=== PATIENT | female | born 1970 | race Caucasian/White ===

== ENCOUNTER → 2018-10-12 13:23 | Outpatient (CLI) | payer OTHER, SELFPAY ==
[2018-10-12 16:18] LABS: T4 Free Direct 1.18 ng/dL (0.76-1.46)
== END ==
PROVIDERS: Family Provider Family Medicine; PCP Family Medicine; Visit Provider Family Medicine
DX: E03.9 Hypothyroidism, unspecified (principal)
CPT/HCPCS: 36415; 84439; 84443

== ENCOUNTER → 2019-08-12 09:21 | Outpatient (CLI) | payer OTHER, SELFPAY ==
--- NOTE | 2019-08-12 09:25 | RAD_ITS ---
STUDY: X-RAY - RIGHT FOOT CLINICAL: Female, [address] Skinner on foot bruising the dorsum of the foot particularly the third and fourth digits. TECHNIQUE: 3 view(s) of the foot. COMPARISON: None. FINDINGS: Normal talus, calcaneus, and tarsal bones. Normal visualized subtalar, talonavicular, calcaneocuboid, tarsal and tarsometatarsal articulations. Normal metatarsi. 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 Normal tibial and fibular sesamoid bones. Normal interphalangeal joint of the great toe. Normal phalanges of the great toe. Normal second through fifth metatarsophalangeal joints. There is Claw toe deformity of the second through fifth toes. There is no fracture or dislocation. The soft tissue structures are unremarkable. RAD/Foot min 3 Views IMPRESSION: No acute fracture or dislocation. Electronically Signed: Basim Vazquez DO at 16:49 EST Tel [phone], Service support ,
== END ==
PROVIDERS: Family Provider Family Medicine; PCP Family Medicine; Referring Provider Family Medicine; Visit Provider Family Medicine
DX: M79.671 Pain in right foot (principal)
CPT/HCPCS: 73630

== ENCOUNTER → 2019-10-01 | Outpatient (CLI) | payer OTHER, SELFPAY | END | disposition home or self-care (01) | LOC: BFHLAB 11:07 | PROVIDERS: PCP Family Medicine; Visit Provider Family Medicine | DX: N39.0 Urinary tract infection, site not specified (principal) | CPT/HCPCS: 87086; 87088; 87186 ==

== ENCOUNTER → 2020-11-03 09:33 | Outpatient (CLI) | payer OTHER, SELFPAY ==
[2020-11-03 12:14] LABS: Absolute Lymphocyte Count 1.19 X10^3/uL (0.83-4.51); Absolute Neutrophil Count 2.6 X10^3/uL (2.0-7.7); Basophil# 0.05 X10^3/uL; Basophil% 1.1 % (0-1); Eosinophil# 0.14 X10^3/uL; Eosinophils% 3.2 % (0-5); Hematocrit 42.5 % (37-47); Hemoglobin 13.4 g/dL (12.0-15.0); Lymphocyte # 1.19 X10^3/ul (4.0); Lymphocyte % 26.8 % (19-41); Mean Corp Hgb Conc 31.5 g/dL (32-36); Mean Corpuscular Hgb 28.4 pg (27.0-32.0); Mean Platelet Vol. 10.8 fl (6.2-12.0); Monocyte# 0.44 X10^3/uL; Monocyte% 9.9 % (0-10); NRBC Flagged by Analyzer 0 % (0-5); Neutrophil # 2.61 X10^3/uL (2.7-7.7); Neutrophil % 58.8 % (47-70); Platelet Count 243 K/mm3 (150-450); RBC Distribution Width CV 12.6 % (11.6-14.6); RBC Distribution Width SD 41.2 fl (35.1-43.9); Red Blood Count 4.72 M/mm3 (4.2-5.4); White Blood Count 4.4 K/mm3 (4.4-11.0)
[2020-11-03 12:45] LABS: ALB/GLOB Ratio 1.1 RATIO (0.9-2.4); AST(SGOT) 14 U/L (15-37); Alanine Aminotransfer ALT/SGPT 20 U/L (13-56); Albumin, Serum 3.9 g/dL (3.2-5.0); Alkaline Phosphatase 80 U/L (45-117); Anion Gap 6 (5-15); BUN 16 mg/dL (7-18); BUN/Creat Ratio 20.8 RATIO (10-20); Calcium,Total 8.9 mg/dL (8.5-10.1); Chloride 107 mmol/L (98-107); Cholesterol 161 mg/dL (200); Creatinine, Serum 0.77 mg/dL (0.55-1.02); EST Glomerular Filtration Rate 84 mL/min (>60); Est Glom Filt Rate - Afr Amer 102 mL/min (>60); Globulin 3.7 g/dL (2.2-4.2); Glucose 87 mg/dL (74-106); High Density Lipoprotein 79 mg/dL; Potassium 4.2 mmol/L (3.5-5.1); Protein, Total 7.6 g/dL (6.4-8.2); Sodium Level 140 mmol/L (136-145); T4 Free Direct 1.38 ng/dL (0.76-1.46); Thyroid Stim Hormone (TSH) 0.92 uIU/mL (0.358-3.74); Triglycerides 60 mg/dL; Very Low Density Lipoprotein 12 mg/dL (5-40)
== END ==
PROVIDERS: PCP Family Medicine; Visit Provider Family Medicine
DX: Z00.00 Encounter for general adult medical examination without abnormal findings (principal); E03.9 Hypothyroidism, unspecified
CPT/HCPCS: 36415; 80053; 80061; 84439; 84443; 85025

== ENCOUNTER → 2020-11-16 12:37 | Outpatient (CLI) | payer OTHER, SELFPAY ==
--- NOTE | 2020-11-16 12:39 | BI_ITS ---
MAMMOGRAPHY - BILATERAL SCREENING REASON FOR EXAM: Female, 50 years old. Routine annual screening examination. PERTINENT HISTORY: Non-contributory. TECHNIQUE: Digital bilateral breast haven (3D mammographic acquisition) in the CC and MLO projections. 2-D mediolateral oblique (MLO) and craniocaudad (CC) views of both breasts were obtained. CAD: Full Field Digital Mammography with Computer Added Detection was performed. COMPARISON: None. Baseline examination. FINDINGS: Breast Composition: There are scattered areas of fibroglandular density. There are no dominant masses or suspicious calcifications. No other significant abnormalities are identified. BI/SCRN MAMM (CAD)W/HAVEN BILAT IMPRESSION: Negative screening mammogram. Yearly followup mammogram recommended. (A) ASSESSMENT CATEGORY: BIRADS Category 1: Negative. A letter regarding these results will be sent to the patient by the facility within 30 days. Approximately 10% of breast cancers are not detected by mammography. A normal mammogram should not delay biopsy of a clinically suspicious abnormality. [id number] Electronically Signed: Rio Arenas MD at 14:49 EDT , Service support ,
== END ==
PROVIDERS: PCP Family Medicine; Referring Provider Family Medicine; Visit Provider Family Medicine
DX: Z12.31 Encounter for screening mammogram for malignant neoplasm of breast (principal)
CPT/HCPCS: 77063; 77067

== ENCOUNTER 2021-12-15 11:50 | Outpatient (CLI) | payer OTHER, SELFPAY ==
--- NOTE | 2021-12-15 11:55 | BI_ITS ---
MAMMOGRAPHY - BILATERAL SCREENING REASON FOR EXAM: Female, 51 years old. Routine annual screening examination. PERTINENT HISTORY: Non-contributory. TECHNIQUE: Digital bilateral breast haven (3D mammographic acquisition) in the CC and MLO projections. 2-D mediolateral oblique (MLO) and craniocaudad (CC) views of both breasts were obtained. CAD: Full Field Digital Mammography with Computer Added Detection was performed. COMPARISON: Comparison is made with prior study dated 11/16/2020. FINDINGS: Breast Composition: There are scattered areas of fibroglandular density. There are no dominant masses or suspicious calcifications. No other significant abnormalities are identified. There has been no significant change since the prior study. BI/SCRN MAMM (CAD)W/HAVEN BILAT IMPRESSION: Stable bilateral screening mammogram. Yearly follow-up mammogram recommended. (A) ASSESSMENT CATEGORY: BIRADS Category 1: Negative. A letter regarding these results will be sent to the patient by the facility within 30 days. Approximately 10% of breast cancers are not detected by mammography. A normal mammogram should not delay biopsy of a clinically suspicious abnormality. [id number] Electronically Signed: Rio Arenas MD at 12:46 EDT ,
== END 2021-12-15 23:59 | disposition home or self-care (01) ==
PROVIDERS: PCP Family Medicine; Visit Provider Family Medicine
DX: Z12.31 Encounter for screening mammogram for malignant neoplasm of breast (principal)
CPT/HCPCS: 77063; 77067

== ENCOUNTER → 2022-04-25 | Outpatient (CLI) | payer OTHER, SELFPAY | END | disposition home or self-care (01) | PROVIDERS: PCP Family Medicine; Visit Provider Family Medicine | DX: S81.801A Unspecified open wound, right lower leg, initial encounter (principal) | CPT/HCPCS: 87070; 87077; 87186; 87205 ==

== ENCOUNTER 2022-04-29 07:45 | Outpatient (RCR) | payer OTHER, SELFPAY ==
[2022-04-29 08:02] VITALS: BP 123/81; PULSE 69; TEMP 36.4
--- NOTE | 2022-04-29 12:30 | HP.PCM_ITS ---
History of Present Illness Date of Service: 04/29/22 Chief Complaint: ulcer right montoya History of Wound: Marietta is a pleasant 51 yo woman who presents to the wound healing center today for evaluation and treatment of an ulcer of her right montoya that has been present since January 2022. She initially injured her montoya by striking it against an extension ladder and developed a large hematoma. An X-ray was done to rule out fracture of bone at that time and this was negative for fracture. The hematoma has decreased in size over time and the wound to her montoya has started to heal at times but never fully healed since the initial injury. In the last week it has gotten larger and become painful and she went to urgent care and was prescribed doxycycline for antibiotics and saw her PCP on Monday who performed a wound culture and referred her here for evaluation and treatment. She has applied bacitracin and triple antibiotic ointment intermittently over the presence of the ulcer. On Monday04/25/2022, she was instructed to start using calcium alginate and kerlix to the ulcer and this has improved the amount of slough to the ulcer. She has moderate drainage. She is tolerating doxycycline treatment and denies any fever, chills, increased erythema or increase in drainage or pain. Wound culture performed by PCP showed Enterobacter, not sensitive to doxycycline. [facility] Medical History Cellulitis of right lower leg Home Medications ciprofloxacin HCl 500 mg tablet 500 mg PO BID #20 tabs 04/29/22 [Rx Last Taken Unknown] Allergy/AdvReac Type Severity Reaction Status Date / Time Penicillins Allergy Intermediate . Verified 02/07/22 10:13 Social History Smoking Status: Never smoker ROS Constitutional Constitutional: Denies chills, fatigue or fever(s) Eyes Eyes: Denies blurry vision, change in vision or loss of vision ENT HEENT: Denies dysphagia, hearing loss or sore throat Cardiovascular Cardiovascular: Denies chest pain, edema or palpitations Respiratory/Chest Respiratory/Chest: Denies dry cough, dyspnea, dyspnea on exertion, productive cough or wheezing Gastrointestinal Gastrointestinal: Denies diarrhea, nausea or vomiting Genitourinary Genitourinary: Denies dysuria or polyuria Musculoskeletal Musculoskeletal: Denies arthralgias, joint stiffness or muscle weakness Integumentary Integumentary: Reports erythema and wounds Neurologic Neurologic: Denies dizziness, memory loss or weakness Psychiatric Psychiatric: Denies homicidal ideation or suicidal ideation Endocrine Endocrinology: Denies polydipsia, polyphagia or polyuria Hematologic/Lymphatic Hematologic/Lymphatic: Denies easy bleeding or easy bruising Allergic/Immunologic Allergic/Immunologic: Denies throat swelling, tongue swelling or urticaria Vital Signs Vital Signs Vital Signs: 04/29/22 08:02 Temperature 97.5 F L Temperature Source Temporal Pulse Rate 69 Blood Pressure 123/81 H Blood Pressure Mean 95 Blood Pressure Source Monitor Blood Pressure Position Sitting Blood Pressure Location Right Arm Physical Exam Const alert, oriented x3 and no apparent distress General Appearance: cooperative and comfortable HEENT normocephalic and head/scalp atraumatic Resp normal respiratory effort Effort and Inspection: able to speak in complete sentences Cardio regular rate and regular rhythm Skin Wounds: wounds noted Wound Narrative: as in clinical panel Psych mental status grossly normal, thought process normal, cooperative and affect normal Debridement Note Debridement Note Wound debrided: right montoya Laterality: Right Type of Debridement: Excisional debridement Anesthesia Used: 4% Lidocaine Solution, 5% Lidocaine Gel and Cetacaine Depth: Down to and including healthy tissue and in the subcutaneous layer Percentage of wound debrided: 100 Instrument Used: 5mm curette, #15 blade and Forceps Tissue Removed: Yellow slough, devitalized tissue Severity: Fat Layer Exposed Amount of bleeding with debridement: Mild Bleeding Controlled with: Compression and gauze Patient tolerated procedure: Patient tolerated procedure well Post-Debridement Measurements and Additional Note: Post-Debridement Measurements/Treatment - Nurse 1 - General Ulcer Assessment Start: 04/29/22 08:01 Freq: Status: Active Protocol: HARINDER Activity Type Activity Date Activity User E-sign Co-sign Detail Recorded Client Recorded Date Recorded By Document 04/29/22 08:02 [id number] 04/29/22 08:10 PAMELA 04/29/22 08:02 - Today's Visit Information Type of service Initial Visit Arrival Mode Ambulatory Patient Identification Verified (Name & Yes ) Vital Signs Temperature (97.8 F-99.1 F) 97.5 F L Temperature Source Temporal Pulse Rate (60-100) 69 Pulse Location Monitor Blood Pressure (90/60-120/80) 123/81 H Blood Pressure Mean 95 Source Monitor Position Sitting Blood Pressure Location Right Arm History Since Last Visit- (Skip if this is Patient's initial visit) Have you changed medications since your No last visit? Any new allergies or adverse reactions No Had a fall/change in ADL's that may No increase risk of falls Signs or symptoms of abuse and/or No neglect since last visit Have you been in the hospital since your No last visit? Has dressing in place as prescribed No Has compression in place as prescribed N/A Has offloadiing in place as prescribed N/A Experienced any changes in pain level or No management Left Footwear Regular Shoe Right Footwear Regular Shoe Pain Scale: 0-10 Numeric Is Patient Pain Free? Yes WC - Nurse 1 - General Ulcer Measurement Start: 04/29/22 08:01 Freq: Status: Active Protocol: Activity Type Activity Date Activity User E-sign Co-sign Detail Recorded Client Recorded Date Recorded By Document 04/29/22 08:02 [id number] 04/29/22 08:10 KR 04/29/22 08:02 Wound Center Nurse 1 #1 Right Montoya -Current Size (cm) - Length 2 -Current Size (cm) - Width 3.3 -Current Size (cm) - Depth 0.2 -Total Square Cm 6.6 -Exudate Amt Small -Exudate Type Serosanguineous -Wound Margin Distinct, Outline Attached -Granulation Amt Medium (34-66%) -Granulation Quality Red -Necrosis Amt Medium (34-66%) -Necrotic Tissue Type Adherent Slough -Texture (Sania-wound Skin Appearance) Assessed, Scarring -Moisture (Sania-wound Skin Appearance) No Abnormality, Assessed -Color (Sania-wound Skin Appearance) No Abnormality, Assessed -Temperature (Sania-wound Skin No Abnormality Appearance) (Pt Warm) -Tenderness on Palpation (Sania-wound No Skin Appearance) -Ulcer Cleansing Rinsed/ Irrigated with Saline -Foul Odor after Cleansing No -Anesthetic Used 5% Lidocaine Gel Right Calf (cm) 40.3 Right Ankle (cm) 30.5 WC - Nurse 2 - General Ulcer CM Notes Start: 04/29/22 08:01 Freq: Status: Active Protocol: Activity Type Activity Date Activity User E-sign Co-sign Detail Recorded Client Recorded Date Recorded By Document 04/29/22 08:27 [id number] 04/29/22 09:02 MW 04/29/22 08:27 Wound Center Nurse 2 #1 Right Montoya -Time 08:29 -Correct Patient Yes -Correct Side, Site, Position Yes -Correct Procedure Yes -Procedure Performed Yes -Type of Procedure Debridement -Clinical Debridement Subcutaneous -Tissue Removed Subcutaneous -Post Debridement (cm) - Length 2.0 -Post Debridement (cm) - Width 3.0 -Post Debridement (cm) - Depth 1.3 -Total Square (Post) (cm) 6.00 -Area of Debridement (cm) - Length 2.0 -Area of Debridement (cm) - Width 3.0 -Total Square (Area) (cm) 6.00 -Tunneling No -Undermining/Tunneling Yes -Undermining/Tunneling Starts (O'clock 4 ) -Undermining/Tunneling Ends (O'clock) 10 -Maximum Distance (cm) 2.8 -Circular Undermining No -Wound/Ulcer Outcome Not Healed -Ulcer Cleansing Rinsed/ Irrigated with Saline -Foul Odor after Cleansing No -Bioengineered Tissue No -Bleeding Controlled with Pressure -Treatment Response Procedure Tolerated Well -Offloading No -Debridement - Subq, 1st 20sq cm Yes Pain Scale: 0-10 Numeric Is Patient Pain Free? Yes WC - Nurse 3 - General Ulcer D/C NN Start: 04/29/22 08:01 Freq: Status: Active Protocol: Activity Type Activity Date Activity User E-sign Co-sign Detail Recorded Client Recorded Date Recorded By Document 04/29/22 09:20 LEROY [id number] 04/29/22 09:24 AK 04/29/22 09:20 Wound Care Nurse 3 #1 Right Montoya -Ulcer Cleansing Rinsed/ Irrigated with Saline -Foul Odor after Cleansing No -Negative Pressure Wound Therapy N/A -Primary Dressing Applied Aquacel AG 4x4, Aquacel Rope, Mepilex Border -Aquacel AG 4x4 2 -Aquacel Rope 2 -Mepilex Border 2 Pain Scale: 0-10 Numeric Is Patient Pain Free? Yes WC - Visit Discharge Discharge Condition Stable Ambulatory Status Ambulatory Transportation Private Auto Medication Reconcilliation completed & Yes provided to patient/care provider Clinical Summary of Care Provided Yes Lab / Micro Data Attestation: I reviewed the patient's lab results. Assessment/Plan Assessment/Plan (1) Cellulitis of right lower leg: CODE(S): L03.115 - Cellulitis of right lower limb (2) Contusion of right lower leg, sequela: CODE(S): S80.11XS - Contusion of right lower leg, sequela (3) Venous ulcer of right leg: CODE(S): I83.019 - Varicose veins of right lower extremity with ulcer of unspecified site; L97.919 - Non-pressure chronic ulcer of unspecified part of right lower leg with unspecified severity PLAN: Plan Debridement performed today in clinic as annotated above. At home wound-care instructions: Will pack the ulcer with Aquacel Ag rope and cover with additional piece of Aquacel for heavy drainage post significant debridement revealing cavernous ulcer/abscess cavity. Will cover with foam silicone dressing. Keep dressing clean and dry. Due to the large cavity of the ulcer, a wound vac would be beneficial for treatment and to decrease the length of time needed to heal the ulcer. It would also prevent deeper infection and ultimate limb loss. Off-loading: The patient was instructed to avoid pressure and friction on the affected areas. Reposition every 2 hours at minimum. Avoid prolonged standing and/or dangling of legs. When seated, feet should be elevated at chest level. Frequent ambulation is encouraged. Diet: Patient encouraged to increase protein intake while taking caution to avoid high carbohydrate and/or sugar intake. Labs/cultures/imaging: Wound culture reviewed and revealed Enterobacter. She will discontinue doxycycline and was started on Ciprofloxacin. New culture taken of the ulcer cavity for anaerobic and aerobic culture. Follow-up: Return in 1 week for wound care follow up. Return sooner or report to the emergency room should symptoms worsen, or new symptoms arise. Note: [employer] speech recognition printed products assembler software was used to create portions of this document. Sound-alike and misspelled words, as well as other printed products assembler errors may be contained in the documentation.
== END 2022-05-04 23:59 | disposition home or self-care (01) ==
LOC: WC 07:45
PROVIDERS: PCP Family Medicine; Visit Provider Family Medicine
DX: L03.115 Cellulitis of right lower limb (principal); L97.912 Non-pressure chronic ulcer of unspecified part of right lower leg with fat layer exposed; I87.2 Venous insufficiency (chronic) (peripheral); I83.91 Asymptomatic varicose veins of right lower extremity; S80.11XS Contusion of right lower leg, sequela
CPT/HCPCS: 11042; 87070; 87075; 87186; 87205; 99213; G0463

== ENCOUNTER 2022-06-03 09:30 | Outpatient (RCR) | payer OTHER, SELFPAY ==
[2022-05-05 00:49] VITALS: BP 123/81; PULSE 69; TEMP 36.4
[2022-05-06 09:15] VITALS: BP 137/88; PULSE 83; RESP 18; TEMP 36.6
--- NOTE | 2022-05-06 11:15 | PN.PCM_ITS ---
History of Present Illness Date of Service: 05/06/22 Chief Complaint: ulcer right montoya History of Wound: Marietta is a pleasant 51 yo woman who presents to the wound healing center today for evaluation and treatment of an ulcer of her right montoya that has been present since January 2022. She initially injured her montoya by striking it against an extension ladder and developed a large hematoma. An X-ray was done to rule out fracture of bone at that time and this was negative for fracture. The hematoma has decreased in size over time and the wound to her montoya has started to heal at times but never fully healed since the initial injury. In the last week it has gotten larger and become painful and she went to urgent care and was prescribed doxycycline for antibiotics and saw her PCP on Monday who performed a wound culture and referred her here for evaluation and treatment. She has applied bacitracin and triple antibiotic ointment intermittently over the presence of the ulcer. On Monday04/25/2022, she was instructed to start using calcium alginate and kerlix to the ulcer and this has improved the amount of slough to the ulcer. She has moderate drainage. She is tolerating doxycycline treatment and denies any fever, chills, increased erythema or increase in drainage or pain. Wound culture performed by PCP showed Enterobacter, not sensitive to doxycycline. Subjective Subjective Marietta's ulcer is improved in appearance since last week. There is granulation and less slough, devitalized tissue. Pain is tolerable. She continues to have heavy drainage and is changing the dressings daily. There was some confusion over whether she could work while wearing the wound vac and she did not return the call to [facility], [facility] to discuss delivery of the wound vac. She was waiting to discuaa at appointment today. She denies fever or chills, erythema. Objective Data Objective Data Vital Signs: Vital Signs Temp Pulse Resp BP 97.8 F 83 18 137/88 H 05/06/22 09:15 05/06/22 09:15 05/06/22 09:15 05/06/22 09:15 Physical Exam Const alert, oriented x3 and no apparent distress General Appearance: cooperative and comfortable HEENT normocephalic and head/scalp atraumatic Resp normal respiratory effort Effort and Inspection: able to speak in complete sentences Cardio regular rate and regular rhythm Skin Wounds: wounds noted Wound Narrative: as in clinical panel Psych mental status grossly normal, thought process normal, cooperative and affect normal Debridement Note Debridement Note Wound debrided: right montoya Laterality: Right Type of Debridement: Excisional debridement Anesthesia Used: 4% Lidocaine Solution Depth: Down to and including healthy tissue and in the subcutaneous layer Percentage of wound debrided: 100 Instrument Used: 7mm curette Tissue Removed: Yellow slough, devitalized tissue Severity: Fat Layer Exposed Amount of bleeding with debridement: Mild Bleeding Controlled with: Compression and gauze Patient tolerated procedure: Patient tolerated procedure well Post-Debridement Measurements and Additional Note: Post-Debridement Measurements/Treatment GREG - Nurse 1 - General Ulcer Assessment Start: 05/06/22 09:15 Freq: Status: Active Protocol: HARINDER Activity Type Activity Date Activity User E-sign Co-sign Detail Recorded Client Recorded Date Recorded By Document 05/06/22 09:15 HIRA [id number] 05/06/22 09:24 DL 05/06/22 09:15 WC - Today's Visit Information Type of service Follow-up Visit (Physician/SPOUTING INSTALLER ) Arrival Mode Ambulatory Transfer Assistance None Patient Identification Verified (Name & Yes ) Patient Requires Transmission-Based No Precautions Vital Signs Temperature (97.8 F-99.1 F) 97.8 F Temperature Source Temporal Pulse Rate (60-100) 83 Pulse Location Monitor Respiratory Rate (12-18) 18 Respiratory rate source Observation Blood Pressure (90/60-120/80) 137/88 H Blood Pressure Mean (mm Hg) 104 Source Monitor History Since Last Visit- (Skip if this is Patient's initial visit) Have you changed medications since your No last visit? Any new allergies or adverse reactions No Had a fall/change in ADL's that may No increase risk of falls Signs or symptoms of abuse and/or No neglect since last visit Have you been in the hospital since your No last visit? Has dressing in place as prescribed Yes Has offloadiing in place as prescribed Yes Experienced any changes in pain level or No management Pain Scale: 0-10 Numeric Is Patient Pain Free? Yes GREG - Nurse 1 - General Ulcer Measurement Start: 05/06/22 09:15 Freq: Status: Active Protocol: Activity Type Activity Date Activity User E-sign Co-sign Detail Recorded Client Recorded Date Recorded By Document 05/06/22 09:15 DL [id number] 05/06/22 09:24 DL 05/06/22 09:15 Wound Center Nurse 1 #1 Right Montoya -Current Size (cm) - Length 2 -Current Size (cm) - Width 2.5 -Current Size (cm) - Depth 0.9 -Total Square Cm 5.0 -Photo Taken No -Undermining/Tunneling Starts (O'clock 4 ) -Undermining/Tunneling Ends (O'clock) 19 -Maximum Distance (cm) 0.5 -Exudate Amt Medium -Exudate Type Serosanguineous -Wound Margin Distinct, Outline Attached -Granulation Amt Medium (34-66%) -Granulation Quality Red -Necrosis Amt Medium (34-66%) -Necrotic Tissue Type Adherent Slough -Structure Exposed N/A -Texture (Sania-wound Skin Appearance) Localized Edema ,Scarring -Moisture (Sania-wound Skin Appearance) No Abnormality -Color (Sania-wound Skin Appearance) Hemosiderin Staining -Temperature (Sania-wound Skin No Abnormality Appearance) (Pt Warm) -Tenderness on Palpation (Sania-wound Yes Skin Appearance) -Ulcer Cleansing Soap and Water -Foul Odor after Cleansing No -Anesthetic Used 4% Lidocaine Solution Right Calf (cm) 44.8 Right Ankle (cm) 27.6 WC - Nurse 2 - General Ulcer CM Notes Start: 05/06/22 09:15 Freq: Status: Active Protocol: Activity Type Activity Date Activity User E-sign Co-sign Detail Recorded Client Recorded Date Recorded By Document 05/06/22 09:47 MW [id number] 05/06/22 10:03 MW 05/06/22 09:47 Wound Center Nurse 2 #1 Right Montoya -Time 09:47 -Correct Patient Yes -Correct Side, Site, Position Yes -Correct Procedure Yes -Procedure Performed Yes -Type of Procedure Debridement -Clinical Debridement Subcutaneous -Tissue Removed Subcutaneous -Post Debridement (cm) - Length 2.4 -Post Debridement (cm) - Width 2.5 -Post Debridement (cm) - Depth 1.1 -Total Square (Post) (cm) 6.00 -Area of Debridement (cm) - Length 2.4 -Area of Debridement (cm) - Width 2.5 -Total Square (Area) (cm) 6.00 -Tunneling No -Undermining/Tunneling Yes -Undermining/Tunneling Starts (O'clock 4 ) -Undermining/Tunneling Ends (O'clock) 10 -Maximum Distance (cm) 4.1 -Circular Undermining No -Wound/Ulcer Outcome Not Healed -Ulcer Cleansing Rinsed/ Irrigated with Saline -Foul Odor after Cleansing No -Bioengineered Tissue No -Bleeding Controlled with Pressure -Treatment Response Procedure Tolerated Well -Offloading No -Debridement - Subq, 1st 20sq cm Yes Pain Scale: 0-10 Numeric Is Patient Pain Free? Yes - Nurse 3 - General Ulcer D/C NN Start: 05/06/22 09:15 Freq: Status: Active Protocol: Activity Type Activity Date Activity User E-sign Co-sign Detail Recorded Client Recorded Date Recorded By Document 05/06/22 10:17 REN [id number] 05/06/22 10:18 RB 05/06/22 10:17 Wound Care Nurse 3 #1 Right Montoya -Ulcer Cleansing Wound Cleanser -Primary Dressing Applied Aquacel AG 4x4, Aquacel Rope, Mepilex Border -Aquacel AG 4x4 1 -Aquacel Rope 1 -Mepilex Border 1 Treatment Response Procedure Tolerated Well Pain Scale: 0-10 Numeric Is Patient Pain Free? Yes - Visit Discharge Discharge Condition Stable Ambulatory Status Ambulatory Transportation Private Auto Medication Reconcilliation completed & No provided to patient/care provider Clinical Summary of Care Provided Yes Assessment/Plan Assessment/Plan (1) Cellulitis of right lower leg: CODE(S): L03.115 - Cellulitis of right lower limb (2) Contusion of right lower leg, sequela: CODE(S): S80.11XS - Contusion of right lower leg, sequela (3) Venous ulcer of right leg: CODE(S): I83.019 - Varicose veins of right lower extremity with ulcer of unspecified site; L97.919 - Non-pressure chronic ulcer of unspecified part of right lower leg with unspecified severity PLAN: Plan Debridement performed today in clinic as annotated above. At home wound-care instructions: Will pack the ulcer with Aquacel Ag rope and cover with additional piece of Aquacel for heavy drainage. Will cover with foam silicone dressing. Keep dressing clean and dry. Due to the large cavity of the ulcer, a wound vac would be beneficial for treatment and to decrease the length of time needed to heal the ulcer. It would also prevent deeper infection and ultimate limb loss. She is going to call to discuss delivery of wound vac and therapy with wound vac will be initiated as soon as she receives wound vac. We have referred to home health for patient to undergo wound vac change once weekly with them and once weekly here at her wound care appointment. Off-loading: The patient was instructed to avoid pressure and friction on the affected areas. Reposition every 2 hours at minimum. Avoid prolonged standing and/or dangling of legs. When seated, feet should be elevated at chest level. Frequent ambulation is encouraged. Diet: Patient encouraged to increase protein intake while taking caution to avoid high carbohydrate and/or sugar intake. Labs/cultures/imaging: Wound culture reviewed and revealed Enterobacter. She will discontinue doxycycline and was started on Ciprofloxacin. New culture taken of the ulcer cavity for anaerobic and aerobic culture. Follow-up: Return in 1 week for wound care follow up. Return sooner or report to the emergency room should symptoms worsen, or new symptoms arise. Note: [employer] speech recognition electronics manufacturer software was used to create portions of this document. Sound-alike and misspelled words, as well as other electronics manufacturer errors may be contained in the documentation.
[2022-05-13 10:11] VITALS: BP 133/78; PULSE 74; TEMP 36.4
--- NOTE | 2022-05-13 13:46 | PN.PCM_ITS ---
History of Present Illness Date of Service: 05/13/22 Chief Complaint: ulcer right montoya History of Wound: Marietta is a pleasant 51 yo woman who presents to the wound healing center today for evaluation and treatment of an ulcer of her right montoya that has been present since January 2022. She initially injured her montoya by striking it against an extension ladder and developed a large hematoma. An X-ray was done to rule out fracture of bone at that time and this was negative for fracture. The hematoma has decreased in size over time and the wound to her montoya has started to heal at times but never fully healed since the initial injury. In the last week it has gotten larger and become painful and she went to urgent care and was prescribed doxycycline for antibiotics and saw her PCP on Monday who performed a wound culture and referred her here for evaluation and treatment. She has applied bacitracin and triple antibiotic ointment intermittently over the presence of the ulcer. On Monday04/25/2022, she was instructed to start using calcium alginate and kerlix to the ulcer and this has improved the amount of slough to the ulcer. She has moderate drainage. She is tolerating doxycycline treatment and denies any fever, chills, increased erythema or increase in drainage or pain. Wound culture performed by PCP showed Enterobacter, not sensitive to doxycycline. Subjective Subjective Marietta's ulcer is improved in appearance since last week. There is granulation and less slough, devitalized tissue. Pain is tolerable. She continues to have heavy drainage and is changing the dressings daily. She denies fever or chills, erythema. Objective Data Objective Data Vital Signs: Vital Signs Temp Pulse Resp BP 97.5 F L 74 18 133/78 H 05/13/22 10:11 05/13/22 10:11 05/06/22 09:15 05/13/22 10:11 Physical Exam Const alert, oriented x3 and no apparent distress General Appearance: cooperative and comfortable HEENT normocephalic and head/scalp atraumatic Resp normal respiratory effort Effort and Inspection: able to speak in complete sentences Cardio regular rate and regular rhythm Skin Wounds: wounds noted Wound Narrative: as in clinical panel Psych mental status grossly normal, thought process normal, cooperative and affect normal Debridement Note Debridement Note Wound debrided: right montoya Laterality: Right Type of Debridement: Excisional debridement Anesthesia Used: 4% Lidocaine Solution Depth: Down to and including healthy tissue and in the subcutaneous layer Percentage of wound debrided: 100 Instrument Used: 7mm curette Tissue Removed: Yellow slough, devitalized tissue Severity: Fat Layer Exposed Amount of bleeding with debridement: Mild Bleeding Controlled with: Compression and gauze Patient tolerated procedure: Patient tolerated procedure well Post-Debridement Measurements and Additional Note: Post-Debridement Measurements/Treatment GREG - Nurse 1 - General Ulcer Assessment Start: 05/06/22 09:15 Freq: Status: Active Protocol: HARINDER Activity Type Activity Date Activity User E-sign Co-sign Detail Recorded Client Recorded Date Recorded By Document 05/06/22 09:15 DL [id number] 05/06/22 09:24 DL Document 05/13/22 10:11 KR [id number] 05/13/22 10:12 KR 05/06/22 05/13/22 09:15 10:11 GREG - Today's Visit Information Type of service Follow-up Visit Follow-up Visit (Physician/TEST FACILITY ENGINEER (Physician/TEST FACILITY ENGINEER ) ) Arrival Mode Ambulatory Ambulatory Transfer Assistance None Patient Identification Verified (Name & Yes Yes ) Patient Requires Transmission-Based No Precautions Vital Signs Temperature (97.8 F-99.1 F) 97.8 F 97.5 F L Temperature Source Temporal Temporal Pulse Rate (60-100) 83 74 Pulse Location Monitor Monitor Respiratory Rate (12-18) 18 Respiratory rate source Observation Blood Pressure (90/60-120/80) 137/88 H 133/78 H Blood Pressure Mean (mm Hg) 104 96 Source Monitor Monitor Position Sitting Blood Pressure Location Right Arm History Since Last Visit- (Skip if this is Patient's initial visit) Have you changed medications since your No No last visit? Any new allergies or adverse reactions No No Had a fall/change in ADL's that may No No increase risk of falls Signs or symptoms of abuse and/or No No neglect since last visit Have you been in the hospital since your No No last visit? Has dressing in place as prescribed Yes Yes Has compression in place as prescribed N/A Has offloadiing in place as prescribed Yes N/A Experienced any changes in pain level or No No management Left Footwear Regular Shoe Right Footwear Regular Shoe Pain Scale: 0-10 Numeric Is Patient Pain Free? Yes Yes GREG Ludwig Nurse 1 - General Ulcer Measurement Start: 05/06/22 09:15 Freq: Status: Active Protocol: Activity Type Activity Date Activity User E-sign Co-sign Detail Recorded Client Recorded Date Recorded By Document 05/06/22 09:15 DL [id number] 05/06/22 09:24 DL Document 05/13/22 10:11 KR [id number] 05/13/22 10:12 KR 05/06/22 05/13/22 09:15 10:11 Wound Center Nurse 1 #1 Right Montoya -Current Size (cm) - Length 2 2 -Current Size (cm) - Width 2.5 2.5 -Current Size (cm) - Depth 0.9 0.5 -Total Square Cm 5.0 5.0 -Photo Taken No -Undermining/Tunneling Starts (O'clock 4 ) -Undermining/Tunneling Ends (O'clock) 19 -Maximum Distance (cm) 0.5 -Exudate Amt Medium Medium -Exudate Type Serosanguineous Serosanguineous -Wound Margin Distinct, Distinct, Outline Outline Attached Attached -Granulation Amt Medium (34-66%) Large (67-100%) -Granulation Quality Red Red -Necrosis Amt Medium (34-66%) None Present (0 %) -Necrotic Tissue Type Adherent Slough -Structure Exposed N/A -Texture (Sania-wound Skin Appearance) Localized Edema Assessed, ,Scarring Scarring -Moisture (Sania-wound Skin Appearance) No Abnormality No Abnormality, Assessed -Color (Sania-wound Skin Appearance) Hemosiderin No Abnormality, Staining Assessed -Temperature (Sania-wound Skin No Abnormality No Abnormality Appearance) (Pt Warm) (Pt Warm) -Tenderness on Palpation (Sania-wound Yes No Skin Appearance) -Ulcer Cleansing Soap and Water Soap and Water -Foul Odor after Cleansing No No -Anesthetic Used 4% Lidocaine 5% Lidocaine Solution Gel Right Calf (cm) 44.8 Right Ankle (cm) 27.6 WC - Nurse 2 - General Ulcer CM Notes Start: 05/06/22 09:15 Freq: Status: Active Protocol: Activity Type Activity Date Activity User E-sign Co-sign Detail Recorded Client Recorded Date Recorded By Document 05/06/22 09:47 MW [id number] 05/06/22 10:03 MW Document 05/13/22 10:35 MW [id number] 05/13/22 10:47 MW 05/06/22 05/13/22 09:47 10:35 Wound Center Nurse 2 #1 Right Montoya -Time 09:47 10:36 -Correct Patient Yes Yes -Correct Side, Site, Position Yes Yes -Correct Procedure Yes Yes -Procedure Performed Yes Yes -Type of Procedure Debridement Debridement -Clinical Debridement Subcutaneous Subcutaneous -Tissue Removed Subcutaneous Subcutaneous -Post Debridement (cm) - Length 2.4 2.1 -Post Debridement (cm) - Width 2.5 2.7 -Post Debridement (cm) - Depth 1.1 0.6 -Total Square (Post) (cm) 6.00 5.67 -Area of Debridement (cm) - Length 2.4 2.1 -Area of Debridement (cm) - Width 2.5 2.7 -Total Square (Area) (cm) 6.00 5.67 -Tunneling No No -Undermining/Tunneling Yes Yes -Undermining/Tunneling Starts (O'clock 4 7 ) -Undermining/Tunneling Ends (O'clock) 10 9 -Maximum Distance (cm) 4.1 4.0 -Circular Undermining No No -Wound/Ulcer Outcome Not Healed Not Healed -Ulcer Cleansing Rinsed/ Rinsed/ Irrigated with Irrigated with Saline Saline -Foul Odor after Cleansing No No -Bioengineered Tissue No No -Bleeding Controlled with Pressure Pressure -Treatment Response Procedure Procedure Tolerated Well Tolerated Well -Offloading No No -Debridement - Subq, 1st 20sq cm Yes Yes Pain Scale: 0-10 Numeric Is Patient Pain Free? Yes Yes WC - Nurse 3 - General Ulcer D/C NN Start: 05/06/22 09:15 Freq: Status: Active Protocol: Activity Type Activity Date Activity User E-sign Co-sign Detail Recorded Client Recorded Date Recorded By Document 05/06/22 10:17 RB [id number] 05/06/22 10:18 RB Document 05/13/22 10:53 KR [id number] 05/13/22 10:54 KR 05/06/22 05/13/22 10:17 10:53 Wound Care Nurse 3 #1 Right Montoya -Ulcer Cleansing Wound Cleanser Rinsed/ Irrigated with Saline -Negative Pressure Wound Therapy Continue -Setting (mmHg) 150 -Negative Pressure is Continuous -Regranex (If Applicable) Continue -Primary Dressing Applied Aquacel AG 4x4, Aquacel Rope, Mepilex Border -NPWT Application Charge NPWT & Debridement (nc ) -Aquacel AG 4x4 1 -Aquacel Rope 1 -Mepilex Border 1 Treatment Response Procedure Tolerated Well Pain Scale: 0-10 Numeric Is Patient Pain Free? Yes Yes WC - Visit Discharge Discharge Condition Stable Stable Ambulatory Status Ambulatory Ambulatory Transportation Private Auto Private Auto Accompanied by daughter Medication Reconcilliation completed & No provided to patient/care provider Clinical Summary of Care Provided Yes Assessment/Plan Assessment/Plan (1) Cellulitis of right lower leg: CODE(S): L03.115 - Cellulitis of right lower limb (2) Contusion of right lower leg, sequela: CODE(S): S80.11XS - Contusion of right lower leg, sequela (3) Venous ulcer of right leg: CODE(S): I83.019 - Varicose veins of right lower extremity with ulcer of unspecified site; L97.919 - Non-pressure chronic ulcer of unspecified part of right lower leg with unspecified severity PLAN: Plan Debridement performed today in clinic as annotated above. At home wound-care instructions: Wound vac applied today. Will plan to change on Monday and she will return here Monday. Keep dressing clean and dry. Due to the large cavity of the ulcer, a wound vac would be beneficial for treatment and to decrease the length of time needed to heal the ulcer. It would also prevent deeper infection and ultimate limb loss. We have referred to home health for patient to undergo wound vac change once weekly with them and once weekly here at her wound care appointment. Off-loading: The patient was instructed to avoid pressure and friction on the affected areas. Reposition every 2 hours at minimum. Avoid prolonged standing and/or dangling of legs. When seated, feet should be elevated at chest level. Frequent ambulation is encouraged. Diet: Patient encouraged to increase protein intake while taking caution to avoid high carbohydrate and/or sugar intake. Labs/cultures/imaging: Wound culture taken again today due to expression of some purulent drainage on exam. Follow-up: Return in 1 week for wound care follow up. Return sooner or report to the emergency room should symptoms worsen, or new symptoms arise. Note: [employer] speech recognition band saw operator cake cutting software was used to create portions of this document. Sound-alike and misspelled words, as well as other band saw operator cake cutting errors may be contained in the documentation.
[2022-05-20 09:19] VITALS: BP 134/77; PULSE 74; TEMP 36.2
--- NOTE | 2022-05-20 14:16 | PCM.WC.PN ---
History of Present Illness Date of Service: 05/20/22 Chief Complaint: ulcer right montoya History of Wound: Marietta is a pleasant 51 yo woman who presents to the wound healing center today for evaluation and treatment of an ulcer of her right montoya that has been present since January 2022. She initially injured her montoya by striking it against an extension ladder and developed a large hematoma. An X-ray was done to rule out fracture of bone at that time and this was negative for fracture. The hematoma has decreased in size over time and the wound to her montoya has started to heal at times but never fully healed since the initial injury. In the last week it has gotten larger and become painful and she went to urgent care and was prescribed doxycycline for antibiotics and saw her PCP on Monday who performed a wound culture and referred her here for evaluation and treatment. She has applied bacitracin and triple antibiotic ointment intermittently over the presence of the ulcer. On Monday04/25/2022, she was instructed to start using calcium alginate and kerlix to the ulcer and this has improved the amount of slough to the ulcer. She has moderate drainage. She is tolerating doxycycline treatment and denies any fever, chills, increased erythema or increase in drainage or pain. Wound culture performed by PCP showed Enterobacter, not sensitive to doxycycline. Subjective Subjective Marietta's ulcer is improved in appearance since last week. There is granulation and less slough, devitalized tissue. Pain is tolerable. She is tolerating wound vac treatment. She denies fever or chills, erythema. Objective Data Objective Data Vital Signs: Vital Signs Temp Pulse Resp BP 97.2 F L 74 18 134/77 H 05/20/22 09:19 05/20/22 09:19 05/06/22 09:15 05/20/22 09:19 Lab / Micro Data Micro: Microbiology 05/13/22 10:40 Wound Abcess - Leg, Right Gram Stain - Final 05/13/22 10:40 Wound Abcess - Leg, Right Wound Culture - Final Streptococcus agalactiae (B) Enterococcus faecalis 05/13/22 10:40 Wound Abcess - Leg, Right Anaerobic Culture - Final Anaerobic cocci Physical Exam Const alert, oriented x3 and no apparent distress General Appearance: cooperative and comfortable HEENT normocephalic and head/scalp atraumatic Resp normal respiratory effort Effort and Inspection: able to speak in complete sentences Cardio regular rate and regular rhythm Skin Wounds: wounds noted Wound Narrative: as in clinical panel Psych mental status grossly normal, thought process normal, cooperative and affect normal Debridement Note Debridement Note Wound debrided: right montoya Laterality: Right Type of Debridement: Excisional debridement Anesthesia Used: 4% Lidocaine Solution and Cetacaine Depth: Down to and including healthy tissue and in the subcutaneous layer Percentage of wound debrided: 100 Instrument Used: 3mm curette Tissue Removed: Yellow slough, devitalized tissue Severity: Fat Layer Exposed Amount of bleeding with debridement: Mild Bleeding Controlled with: Compression and gauze Patient tolerated procedure: Patient tolerated procedure well Post-Debridement Measurements and Additional Note: Post-Debridement Measurements/Treatment - Nurse 1 - General Ulcer Assessment Start: 05/06/22 09:15 Freq: Status: Active Protocol: HARINDER Activity Type Activity Date Activity User E-sign Co-sign Detail Recorded Client Recorded Date Recorded By Document 05/06/22 09:15 DL [id number] 05/06/22 09:24 DL Document 05/13/22 10:11 KR [id number] 05/13/22 10:12 KR Document 05/20/22 09:19 AK [id number] 05/20/22 09:24 AK 05/06/22 05/13/22 05/20/22 09:15 10:11 09:19 - Today's Visit Information Type of service Follow-up Visit Follow-up Visit Follow-up Visit (Physician/DEBURRING AND TOOLING MACHINE OPERATOR (Physician/DEBURRING AND TOOLING MACHINE OPERATOR (Physician/DEBURRING AND TOOLING MACHINE OPERATOR ) ) ) Arrival Mode Ambulatory Ambulatory Ambulatory Transfer Assistance None Patient Identification Verified (Name & Yes Yes Yes ) Patient Requires Transmission-Based No No Precautions Safety Precautions NA Vital Signs Temperature (97.8 F-99.1 F) 97.8 F 97.5 F L 97.2 F L Temperature Source Temporal Temporal Temporal Pulse Rate (60-100) 83 74 74 Pulse Location Monitor Monitor Monitor Respiratory Rate (12-18) 18 Respiratory rate source Observation Blood Pressure (90/60-120/80) 137/88 H 133/78 H 134/77 H Blood Pressure Mean (mm Hg) 104 96 96 Source Monitor Monitor Monitor Position Sitting Blood Pressure Location Right Arm History Since Last Visit- (Skip if this is Patient's initial visit) Have you changed medications since your No No No last visit? Any new allergies or adverse reactions No No No Had a fall/change in ADL's that may No No No increase risk of falls Signs or symptoms of abuse and/or No No No neglect since last visit Have you been in the hospital since your No No No last visit? Has dressing in place as prescribed Yes Yes No Has compression in place as prescribed N/A No Has offloadiing in place as prescribed Yes N/A N/A Experienced any changes in pain level or No No No management Left Footwear Regular Shoe Regular Shoe Right Footwear Regular Shoe Regular Shoe Pain Scale: 0-10 Numeric Is Patient Pain Free? Yes Yes Yes WC - Nurse 1 - General Ulcer Measurement Start: 05/06/22 09:15 Freq: Status: Active Protocol: Activity Type Activity Date Activity User E-sign Co-sign Detail Recorded Client Recorded Date Recorded By Document 05/06/22 09:15 DL [id number] 05/06/22 09:24 DL Document 05/13/22 10:11 KR [id number] 05/13/22 10:12 KR Document 05/20/22 09:19 AK [id number] 05/20/22 09:24 AK 05/06/22 05/13/22 05/20/22 09:15 10:11 09:19 Wound Center Nurse 1 #1 Right Montoya -Combined with other wound No -Current Size (cm) - Length 2 2 2.3 -Current Size (cm) - Width 2.5 2.5 2.4 -Current Size (cm) - Depth 0.9 0.5 0.6 -Total Square Cm 5.0 5.0 5.52 -Photo Taken No No -Epithelialization None Present -Tunneling No -Undermining/Tunneling No -Undermining/Tunneling Starts (O'clock 4 ) -Undermining/Tunneling Ends (O'clock) 19 -Maximum Distance (cm) 0.5 -Circular Undermining No -Change in Wound Grade/Stage No -Exudate Amt Medium Medium Large -Exudate Type Serosanguineous Serosanguineous Serosanguineous -Wound Margin Distinct, Distinct, Distinct, Outline Outline Outline Attached Attached Attached -Granulation Amt Medium (34-66%) Large (67-100%) None Present (0 %) -Granulation Quality Red Red Quinn,Red -Slough/Fibrin Yes -Necrosis Amt Medium (34-66%) None Present (0 Medium (34-66%) %) -Necrotic Tissue Type Adherent Slough Adherent Slough -Structure Exposed N/A N/A -Texture (Sania-wound Skin Appearance) Localized Edema Assessed, No Abnormality, ,Scarring Scarring Assessed -Moisture (Sania-wound Skin Appearance) No Abnormality No Abnormality, No Abnormality, Assessed Assessed -Color (Sanai-wound Skin Appearance) Hemosiderin No Abnormality, No Abnormality, Staining Assessed Assessed -Temperature (Sania-wound Skin No Abnormality No Abnormality No Abnormality Appearance) (Pt Warm) (Pt Warm) (Pt Warm) -Tenderness on Palpation (Sania-wound Yes No No Skin Appearance) -Ulcer Cleansing Soap and Water Soap and Water Soap and Water -Foul Odor after Cleansing No No No -Anesthetic Used 4% Lidocaine 5% Lidocaine 5% Lidocaine Solution Gel Gel Right Calf (cm) 44.8 Right Ankle (cm) 27.6 WC - Nurse 2 - General Ulcer CM Notes Start: 05/06/22 09:15 Freq: Status: Active Protocol: Activity Type Activity Date Activity User E-sign Co-sign Detail Recorded Client Recorded Date Recorded By Document 05/06/22 09:47 MW [id number] 05/06/22 10:03 MW Document 05/13/22 10:35 MW [id number] 05/13/22 10:47 MW Document 05/20/22 09:33 MW [id number] 05/20/22 09:51 MW 05/06/22 05/13/22 05/20/22 09:47 10:35 09:33 Wound Center Nurse 2 #1 Right Montoya -Time 09:47 10:36 09:33 -Correct Patient Yes Yes Yes -Correct Side, Site, Position Yes Yes Yes -Correct Procedure Yes Yes Yes -Procedure Performed Yes Yes Yes -Type of Procedure Debridement Debridement Debridement -Clinical Debridement Subcutaneous Subcutaneous Subcutaneous -Tissue Removed Subcutaneous Subcutaneous Subcutaneous -Post Debridement (cm) - Length 2.4 2.1 2.3 -Post Debridement (cm) - Width 2.5 2.7 2.5 -Post Debridement (cm) - Depth 1.1 0.6 0.6 -Total Square (Post) (cm) 6.00 5.67 5.75 -Area of Debridement (cm) - Length 2.4 2.1 2.3 -Area of Debridement (cm) - Width 2.5 2.7 2.5 -Total Square (Area) (cm) 6.00 5.67 5.75 -Tunneling No No No -Undermining/Tunneling Yes Yes Yes -Undermining/Tunneling Starts (O'clock 4 7 7 ) -Undermining/Tunneling Ends (O'clock) 10 9 9 -Maximum Distance (cm) 4.1 4.0 4.5 -Circular Undermining No No No -Wound/Ulcer Outcome Not Healed Not Healed Not Healed -Ulcer Cleansing Rinsed/ Rinsed/ Rinsed/ Irrigated with Irrigated with Irrigated with Saline Saline Saline -Foul Odor after Cleansing No No No -Bioengineered Tissue No No No -Bleeding Controlled with Pressure Pressure Pressure -Treatment Response Procedure Procedure Procedure Tolerated Well Tolerated Well Tolerated Well -Offloading No No No -Debridement - Subq, 1st 20sq cm Yes Yes Yes Pain Scale: 0-10 Numeric Is Patient Pain Free? Yes Yes Yes - Nurse 3 - General Ulcer D/C NN Start: 05/06/22 09:15 Freq: Status: Active Protocol: Activity Type Activity Date Activity User E-sign Co-sign Detail Recorded Client Recorded Date Recorded By Document 05/06/22 10:17 RB [id number] 05/06/22 10:18 RB Document 05/13/22 10:53 KR [id number] 05/13/22 10:54 KR Document 05/20/22 12:33 AK [id number] 05/20/22 12:33 AK 05/06/22 05/13/22 05/20/22 10:17 10:53 12:33 Wound Care Nurse 3 #1 Right Montoya -Ulcer Cleansing Wound Cleanser Rinsed/ Rinsed/ Irrigated with Irrigated with Saline Saline -Foul Odor after Cleansing No -Negative Pressure Wound Therapy Continue Continue -Setting (mmHg) 150 150 -Negative Pressure is Continuous Continuous -Regranex (If Applicable) Continue -Primary Dressing Applied Aquacel AG 4x4, Aquacel Rope, Mepilex Border -NPWT Application Charge NPWT & NPWT </= 50 sq Debridement (nc cm ($) ) -Aquacel AG 4x4 1 -Aquacel Rope 1 -Mepilex Border 1 Treatment Response Procedure Tolerated Well Pain Scale: 0-10 Numeric Is Patient Pain Free? Yes Yes Yes WC - Visit Discharge Discharge Condition Stable Stable Stable Ambulatory Status Ambulatory Ambulatory Ambulatory Transportation Private Auto Private Auto Private Auto Accompanied by daughter daughter Medication Reconcilliation completed & No Yes provided to patient/care provider Clinical Summary of Care Provided Yes Yes Assessment/Plan Assessment/Plan (1) Cellulitis of right lower leg: CODE(S): L03.115 - Cellulitis of right lower limb (2) Contusion of right lower leg, sequela: CODE(S): S80.11XS - Contusion of right lower leg, sequela (3) Venous ulcer of right leg: CODE(S): I83.019 - Varicose veins of right lower extremity with ulcer of unspecified site; L97.919 - Non-pressure chronic ulcer of unspecified part of right lower leg with unspecified severity PLAN: Plan Debridement performed today in clinic as annotated above. At home wound-care instructions: Wound vac applied today. Will plan to change on Monday and she will return here Monday. Keep dressing clean and dry. Due to the large cavity of the ulcer, a wound vac would be beneficial for treatment and to decrease the length of time needed to heal the ulcer. It would also prevent deeper infection and ultimate limb loss. If there is lack of improvement, I would consider CT scan for further evaluation to se if there is any underlying abscess cavity. We have referred to home health for patient to undergo wound vac change once weekly with them and once weekly here at her wound care appointment. Off-loading: The patient was instructed to avoid pressure and friction on the affected areas. Reposition every 2 hours at minimum. Avoid prolonged standing and/or dangling of legs. When seated, feet should be elevated at chest level. Frequent ambulation is encouraged. Diet: Patient encouraged to increase protein intake while taking caution to avoid high carbohydrate and/or sugar intake. Labs/cultures/imaging: Wound culture was positive for multiple bacteria and she is tolerating treatment well with Linezolid which she started on Monday. Follow-up: Return in 1 week for wound care follow up. Return sooner or report to the emergency room should symptoms worsen, or new symptoms arise. Note: [employer] speech recognition senior administrative assistant software was used to create portions of this document. Sound-alike and misspelled words, as well as other senior administrative assistant errors may be contained in the documentation.
[2022-05-27 09:41] VITALS: BP 136/86; PULSE 86; TEMP 36.3
--- NOTE | 2022-05-27 12:25 | PN.PCM_ITS ---
History of Present Illness Date of Service: 05/27/22 Chief Complaint: ulcer right montoya History of Wound: Marietta is a pleasant 51 yo woman who presents to the wound healing center today for evaluation and treatment of an ulcer of her right montoya that has been present since January 2022. She initially injured her montoya by striking it against an extension ladder and developed a large hematoma. An X-ray was done to rule out fracture of bone at that time and this was negative for fracture. The hematoma has decreased in size over time and the wound to her montoya has started to heal at times but never fully healed since the initial injury. In the last week it has gotten larger and become painful and she went to urgent care and was prescribed doxycycline for antibiotics and saw her PCP on Monday who performed a wound culture and referred her here for evaluation and treatment. She has applied bacitracin and triple antibiotic ointment intermittently over the presence of the ulcer. On Monday04/25/2022, she was instructed to start using calcium alginate and kerlix to the ulcer and this has improved the amount of slough to the ulcer. She has moderate drainage. She is tolerating doxycycline treatment and denies any fever, chills, increased erythema or increase in drainage or pain. Wound culture performed by PCP showed Enterobacter, not sensitive to doxycycline. Subjective Subjective Marietta's ulcer is improved in appearance since last week. There is granulation and less slough, devitalized tissue. Pain is tolerable. She is tolerating wound vac treatment. She denies fever or chills, erythema. Objective Data Objective Data Vital Signs: Vital Signs Temp Pulse Resp BP 97.3 F L 86 18 136/86 H 05/27/22 09:41 05/27/22 09:41 05/06/22 09:15 05/27/22 09:41 Lab / Micro Data Micro: Microbiology 05/13/22 10:40 Wound Abcess - Leg, Right Gram Stain - Final 05/13/22 10:40 Wound Abcess - Leg, Right Wound Culture - Final Streptococcus agalactiae (B) Enterococcus faecalis 05/13/22 10:40 Wound Abcess - Leg, Right Anaerobic Culture - Final Anaerobic cocci Physical Exam Const alert, oriented x3 and no apparent distress General Appearance: cooperative and comfortable HEENT normocephalic and head/scalp atraumatic Resp normal respiratory effort Effort and Inspection: able to speak in complete sentences Cardio regular rate and regular rhythm Skin Wounds: wounds noted Wound Narrative: as in clinical panel Psych mental status grossly normal, thought process normal, cooperative and affect normal Debridement Note Debridement Note Wound debrided: right montoya Laterality: Right Type of Debridement: Excisional debridement Anesthesia Used: 4% Lidocaine Solution and Cetacaine Depth: Down to and including healthy tissue and in the subcutaneous layer Percentage of wound debrided: 100 Instrument Used: 3mm curette Tissue Removed: Yellow slough, devitalized tissue Severity: Fat Layer Exposed Amount of bleeding with debridement: Mild Bleeding Controlled with: Compression and gauze Patient tolerated procedure: Patient tolerated procedure well Post-Debridement Measurements and Additional Note: Post-Debridement Measurements/Treatment - Nurse 1 - General Ulcer Assessment Start: 05/06/22 09:15 Freq: Status: Active Protocol: HARINDER Activity Type Activity Date Activity User E-sign Co-sign Detail Recorded Client Recorded Date Recorded By Document 05/06/22 09:15 DL [id number] 05/06/22 09:24 DL Document 05/13/22 10:11 KR [id number] 05/13/22 10:12 KR Document 05/20/22 09:19 AK [id number] 05/20/22 09:24 AK Document 05/27/22 09:41 KR [id number] 05/27/22 09:47 KR 05/06/22 05/13/22 05/20/22 09:15 10:11 09:19 - Today's Visit Information Type of service Follow-up Visit Follow-up Visit Follow-up Visit (Physician/WORD PROCESSOR (Physician/WORD PROCESSOR (Physician/WORD PROCESSOR ) ) ) Arrival Mode Ambulatory Ambulatory Ambulatory Transfer Assistance None Patient Identification Verified (Name & Yes Yes Yes ) Patient Requires Transmission-Based No No Precautions Safety Precautions NA Vital Signs Temperature (97.8 F-99.1 F) 97.8 F 97.5 F L 97.2 F L Temperature Source Temporal Temporal Temporal Pulse Rate (60-100) 83 74 74 Pulse Location Monitor Monitor Monitor Respiratory Rate (12-18) 18 Respiratory rate source Observation Blood Pressure (90/60-120/80) 137/88 H 133/78 H 134/77 H Blood Pressure Mean (mm Hg) 104 96 96 Source Monitor Monitor Monitor Position Sitting Blood Pressure Location Right Arm History Since Last Visit- (Skip if this is Patient's initial visit) Have you changed medications since your No No No last visit? Any new allergies or adverse reactions No No No Had a fall/change in ADL's that may No No No increase risk of falls Signs or symptoms of abuse and/or No No No neglect since last visit Have you been in the hospital since your No No No last visit? Has dressing in place as prescribed Yes Yes No Has compression in place as prescribed N/A No Has offloadiing in place as prescribed Yes N/A N/A Experienced any changes in pain level or No No No management Left Footwear Regular Shoe Regular Shoe Right Footwear Regular Shoe Regular Shoe Pain Scale: 0-10 Numeric Is Patient Pain Free? Yes Yes Yes 05/27/22 09:41 WC - Today's Visit Information Type of service Follow-up Visit (Physician/WORD PROCESSOR ) Arrival Mode Ambulatory Transfer Assistance Patient Identification Verified (Name & Yes ) Patient Requires Transmission-Based Precautions Safety Precautions Vital Signs Temperature (97.8 F-99.1 F) 97.3 F L Temperature Source Temporal Pulse Rate (60-100) 86 Pulse Location Monitor Respiratory Rate (12-18) Respiratory rate source Blood Pressure (90/60-120/80) 136/86 H Blood Pressure Mean (mm Hg) 102 Source Monitor Position Semi-Fowlers Blood Pressure Location Right Arm History Since Last Visit- (Skip if this is Patient's initial visit) Have you changed medications since your No last visit? Any new allergies or adverse reactions No Had a fall/change in ADL's that may No increase risk of falls Signs or symptoms of abuse and/or No neglect since last visit Have you been in the hospital since your No last visit? Has dressing in place as prescribed Yes Has compression in place as prescribed N/A Has offloadiing in place as prescribed N/A Experienced any changes in pain level or No management Left Footwear Regular Shoe Right Footwear Regular Shoe Pain Scale: 0-10 Numeric Is Patient Pain Free? Yes - Nurse 1 - General Ulcer Measurement Start: 05/06/22 09:15 Freq: Status: Active Protocol: Activity Type Activity Date Activity User E-sign Co-sign Detail Recorded Client Recorded Date Recorded By Document 05/06/22 09:15 DL [id number] 05/06/22 09:24 DL Document 05/13/22 10:11 KR [id number] 05/13/22 10:12 KR Document 05/20/22 09:19 AK [id number] 05/20/22 09:24 AK Document 05/27/22 09:41 KR [id number] 05/27/22 09:47 KR 05/06/22 05/13/22 05/20/22 09:15 10:11 09:19 Wound Center Nurse 1 #1 Right Montoya -Combined with other wound No -Current Size (cm) - Length 2 2 2.3 -Current Size (cm) - Width 2.5 2.5 2.4 -Current Size (cm) - Depth 0.9 0.5 0.6 -Total Square Cm 5.0 5.0 5.52 -Photo Taken No No -Epithelialization None Present -Tunneling No -Undermining/Tunneling No -Undermining/Tunneling Starts (O'clock 4 ) -Undermining/Tunneling Ends (O'clock) 19 -Maximum Distance (cm) 0.5 -Circular Undermining No -Change in Wound Grade/Stage No -Exudate Amt Medium Medium Large -Exudate Type Serosanguineous Serosanguineous Serosanguineous -Wound Margin Distinct, Distinct, Distinct, Outline Outline Outline Attached Attached Attached -Granulation Amt Medium (34-66%) Large (67-100%) None Present (0 %) -Granulation Quality Red Red [place],Red -Slough/Fibrin Yes -Necrosis Amt Medium (34-66%) None Present (0 Medium (34-66%) %) -Necrotic Tissue Type Adherent Slough Adherent Slough -Structure Exposed N/A N/A -Texture (Sania-wound Skin Appearance) Localized Edema Assessed, No Abnormality, ,Scarring Scarring Assessed -Moisture (Sania-wound Skin Appearance) No Abnormality No Abnormality, No Abnormality, Assessed Assessed -Color (Sania-wound Skin Appearance) Hemosiderin No Abnormality, No Abnormality, Staining Assessed Assessed -Temperature (Sania-wound Skin No Abnormality No Abnormality No Abnormality Appearance) (Pt Warm) (Pt Warm) (Pt Warm) -Tenderness on Palpation (Sania-wound Yes No No Skin Appearance) -Ulcer Cleansing Soap and Water Soap and Water Soap and Water -Foul Odor after Cleansing No No No -Anesthetic Used 4% Lidocaine 5% Lidocaine 5% Lidocaine Solution Gel Gel Right Calf (cm) 44.8 Right Ankle (cm) 27.6 05/27/22 09:41 Wound Center Nurse 1 #1 Right Montoya -Combined with other wound -Current Size (cm) - Length 1.8 -Current Size (cm) - Width 2.4 -Current Size (cm) - Depth 0.8 -Total Square Cm 4.32 -Photo Taken -Epithelialization -Tunneling -Undermining/Tunneling -Undermining/Tunneling Starts (O'clock 7 ) -Undermining/Tunneling Ends (O'clock) 8 -Maximum Distance (cm) 2.4 -Circular Undermining -Change in Wound Grade/Stage -Exudate Amt Large -Exudate Type Serosanguineous -Wound Margin Distinct, Outline Attached -Granulation Amt Large (67-100%) -Granulation Quality Red -Slough/Fibrin -Necrosis Amt None Present (0 %) -Necrotic Tissue Type -Structure Exposed -Texture (Sania-wound Skin Appearance) Assessed, Scarring -Moisture (Sania-wound Skin Appearance) No Abnormality, Assessed -Color (Sania-wound Skin Appearance) No Abnormality, Assessed -Temperature (Sania-wound Skin No Abnormality Appearance) (Pt Warm) -Tenderness on Palpation (Sania-wound No Skin Appearance) -Ulcer Cleansing Soap and Water -Foul Odor after Cleansing No -Anesthetic Used 5% Lidocaine Gel Right Calf (cm) 43.2 Right Ankle (cm) 26 WC - Nurse 2 - General Ulcer CM Notes Start: 05/06/22 09:15 Freq: Status: Active Protocol: Activity Type Activity Date Activity User E-sign Co-sign Detail Recorded Client Recorded Date Recorded By Document 05/06/22 09:47 MW [id number] 05/06/22 10:03 MW Document 05/13/22 10:35 MW [id number] 05/13/22 10:47 MW Document 05/20/22 09:33 MW [id number] 05/20/22 09:51 MW Document 05/27/22 10:06 MW [id number] 05/27/22 10:14 MW 05/06/22 05/13/22 05/20/22 09:47 10:35 09:33 Wound Center Nurse 2 #1 Right Montoya -Time 09:47 10:36 09:33 -Correct Patient Yes Yes Yes -Correct Side, Site, Position Yes Yes Yes -Correct Procedure Yes Yes Yes -Procedure Performed Yes Yes Yes -Type of Procedure Debridement Debridement Debridement -Clinical Debridement Subcutaneous Subcutaneous Subcutaneous -Tissue Removed Subcutaneous Subcutaneous Subcutaneous -Post Debridement (cm) - Length 2.4 2.1 2.3 -Post Debridement (cm) - Width 2.5 2.7 2.5 -Post Debridement (cm) - Depth 1.1 0.6 0.6 -Total Square (Post) (cm) 6.00 5.67 5.75 -Area of Debridement (cm) - Length 2.4 2.1 2.3 -Area of Debridement (cm) - Width 2.5 2.7 2.5 -Total Square (Area) (cm) 6.00 5.67 5.75 -Tunneling No No No -Undermining/Tunneling Yes Yes Yes -Undermining/Tunneling Starts (O'clock 4 7 7 ) -Undermining/Tunneling Ends (O'clock) 10 9 9 -Maximum Distance (cm) 4.1 4.0 4.5 -Circular Undermining No No No -Wound/Ulcer Outcome Not Healed Not Healed Not Healed -Ulcer Cleansing Rinsed/ Rinsed/ Rinsed/ Irrigated with Irrigated with Irrigated with Saline Saline Saline -Foul Odor after Cleansing No No No -Bioengineered Tissue No No No -Bleeding Controlled with Pressure Pressure Pressure -Treatment Response Procedure Procedure Procedure Tolerated Well Tolerated Well Tolerated Well -Offloading No No No -Debridement - Subq, 1st 20sq cm Yes Yes Yes Pain Scale: 0-10 Numeric Is Patient Pain Free? Yes Yes Yes 05/27/22 10:06 Wound Center Nurse 2 #1 Right Montoya -Time 10:06 -Correct Patient Yes -Correct Side, Site, Position Yes -Correct Procedure Yes -Procedure Performed Yes -Type of Procedure Debridement -Clinical Debridement Subcutaneous -Tissue Removed Subcutaneous -Post Debridement (cm) - Length 1.9 -Post Debridement (cm) - Width 2.3 -Post Debridement (cm) - Depth 0.2 -Total Square (Post) (cm) 4.37 -Area of Debridement (cm) - Length 1.9 -Area of Debridement (cm) - Width 2.3 -Total Square (Area) (cm) 4.37 -Tunneling No -Undermining/Tunneling Yes -Undermining/Tunneling Starts (O'clock 7 ) -Undermining/Tunneling Ends (O'clock) 9 -Maximum Distance (cm) 3.5 -Circular Undermining No -Wound/Ulcer Outcome Not Healed -Ulcer Cleansing Rinsed/ Irrigated with Saline -Foul Odor after Cleansing No -Bioengineered Tissue No -Bleeding Controlled with Pressure -Treatment Response Procedure Tolerated Well -Offloading No -Debridement - Subq, 1st 20sq cm Yes Pain Scale: 0-10 Numeric Is Patient Pain Free? Yes WC - Nurse 3 - General Ulcer D/C NN Start: 05/06/22 09:15 Freq: Status: Active Protocol: Activity Type Activity Date Activity User E-sign Co-sign Detail Recorded Client Recorded Date Recorded By Document 05/06/22 10:17 RB [id number] 05/06/22 10:18 RB Document 05/13/22 10:53 KR [id number] 05/13/22 10:54 KR Document 05/20/22 12:33 AK [id number] 05/20/22 12:33 AK Edit Result 05/20/22 12:33 AK (1) [id number] 05/23/22 06:50 [address] Document 05/27/22 10:31 KR [id number] 05/27/22 10:32 KR (1) #1 Right Montoya - NPWT Application Charge NPWT </= 50 sq cm => NPWT & Debridement ($) => (nc) 05/06/22 05/13/22 05/20/22 10:17 10:53 12:33 Wound Care Nurse 3 #1 Right Montoya -Ulcer Cleansing Wound Cleanser Rinsed/ Rinsed/ Irrigated with Irrigated with Saline Saline -Foul Odor after Cleansing No -Negative Pressure Wound Therapy Continue Continue -Setting (mmHg) 150 150 -Negative Pressure is Continuous Continuous -Regranex (If Applicable) Continue -Primary Dressing Applied Aquacel AG 4x4, Aquacel Rope, Mepilex Border -NPWT Application Charge NPWT & NPWT & Debridement (nc Debridement (nc ) ) -Aquacel AG 4x4 1 -Aquacel Rope 1 -Mepilex Border 1 Treatment Response Procedure Tolerated Well Pain Scale: 0-10 Numeric Is Patient Pain Free? Yes Yes Yes WC - Visit Discharge Discharge Condition Stable Stable Stable Ambulatory Status Ambulatory Ambulatory Ambulatory Transportation Private Auto Private Auto Private Auto Accompanied by daughter daughter Medication Reconcilliation completed & No Yes provided to patient/care provider Clinical Summary of Care Provided Yes Yes 05/27/22 10:31 Wound Care Nurse 3 #1 Right Montoya -Ulcer Cleansing Rinsed/ Irrigated with Saline -Foul Odor after Cleansing -Negative Pressure Wound Therapy Continue -Setting (mmHg) 150 -Negative Pressure is Continuous -Regranex (If Applicable) Continue -Primary Dressing Applied -NPWT Application Charge NPWT & Debridement (nc ) -Aquacel AG 4x4 -Aquacel Rope -Mepilex Border Treatment Response Pain Scale: 0-10 Numeric Is Patient Pain Free? Yes WC - Visit Discharge Discharge Condition Stable Ambulatory Status Ambulatory Transportation Private Auto Accompanied by daughter Medication Reconcilliation completed & provided to patient/care provider Clinical Summary of Care Provided Assessment/Plan Assessment/Plan (1) Cellulitis of right lower leg: CODE(S): L03.115 - Cellulitis of right lower limb (2) Contusion of right lower leg, sequela: CODE(S): S80.11XS - Contusion of right lower leg, sequela (3) Venous ulcer of right leg: CODE(S): I83.019 - Varicose veins of right lower extremity with ulcer of unspecified site; L97.919 - Non-pressure chronic ulcer of unspecified part of right lower leg with unspecified severity PLAN: Plan Debridement performed today in clinic as annotated above. At home wound-care instructions: Wound vac re-applied today. Will plan to change on Monday and she will return here Monday. Keep dressing clean and dry. Due to the large cavity of the ulcer, a wound vac would be beneficial for treatment and to decrease the length of time needed to heal the ulcer. It would also prevent deeper infection and ultimate limb loss. If there is lack of improvement, I would consider CT scan for further evaluation to se if there is any underlying abscess cavity. We have referred to home health for patient to undergo wound vac change once weekly with them and once weekly here at her wound care appointment. Off-loading: The patient was instructed to avoid pressure and friction on the affected areas. Reposition every 2 hours at minimum. Avoid prolonged standing and/or dangling of legs. When seated, feet should be elevated at chest level. Frequent ambulation is encouraged. Diet: Patient encouraged to increase protein intake while taking caution to avoid high carbohydrate and/or sugar intake. Labs/cultures/imaging: Wound culture was positive for multiple bacteria and she completed treatment with Linezolid and has developed thrush. Diflucan was prescribed. Follow-up: Return in 1 week for wound care follow up. Return sooner or report to the emergency room should symptoms worsen, or new symptoms arise. Note: [employer] speech recognition agricultural chemicals inspector software was used to create portions of this document. Sound-alike and misspelled words, as well as other agricultural chemicals inspector errors may be contained in the documentation.
[2022-06-03 09:38] VITALS: BP 129/67; PULSE 71; RESP 20; TEMP 35.4
--- NOTE | 2022-06-03 12:53 | PN.PCM_ITS ---
History of Present Illness Date of Service: 06/03/22 Chief Complaint: ulcer right montoya History of Wound: Marietta is a pleasant 51 yo woman who presents to the wound healing center today for evaluation and treatment of an ulcer of her right montoya that has been present since January 2022. She initially injured her montoya by striking it against an extension ladder and developed a large hematoma. An X-ray was done to rule out fracture of bone at that time and this was negative for fracture. The hematoma has decreased in size over time and the wound to her montoya has started to heal at times but never fully healed since the initial injury. In the last week it has gotten larger and become painful and she went to urgent care and was prescribed doxycycline for antibiotics and saw her PCP on Monday who performed a wound culture and referred her here for evaluation and treatment. She has applied bacitracin and triple antibiotic ointment intermittently over the presence of the ulcer. On Monday04/25/2022, she was instructed to start using calcium alginate and kerlix to the ulcer and this has improved the amount of slough to the ulcer. She has moderate drainage. She is tolerating doxycycline treatment and denies any fever, chills, increased erythema or increase in drainage or pain. Wound culture performed by PCP showed Enterobacter, not sensitive to doxycycline. Subjective Subjective Marietta's ulcer is improved in appearance since last week. There is granulation and less slough, devitalized tissue. Pain is tolerable. She is tolerating wound vac treatment. She denies fever or chills, erythema. Objective Data Objective Data Vital Signs: Vital Signs Temp Pulse Resp BP 95.8 F L 71 20 H 129/67 H 06/03/22 09:38 06/03/22 09:38 06/03/22 09:38 06/03/22 09:38 Lab / Micro Data Micro: Microbiology 05/13/22 10:40 Wound Abcess - Leg, Right Gram Stain - Final 05/13/22 10:40 Wound Abcess - Leg, Right Wound Culture - Final Streptococcus agalactiae (B) Enterococcus faecalis 05/13/22 10:40 Wound Abcess - Leg, Right Anaerobic Culture - Final Anaerobic cocci Physical Exam Const alert, oriented x3 and no apparent distress General Appearance: cooperative and comfortable HEENT normocephalic and head/scalp atraumatic Resp normal respiratory effort Effort and Inspection: able to speak in complete sentences Cardio regular rate and regular rhythm Skin Wounds: wounds noted Wound Narrative: as in clinical panel Psych mental status grossly normal, thought process normal, cooperative and affect normal Debridement Note Debridement Note Wound debrided: right montoya Laterality: Right Type of Debridement: Excisional debridement Anesthesia Used: 4% Lidocaine Solution and Cetacaine Depth: Down to and including healthy tissue and in the subcutaneous layer Percentage of wound debrided: 100 Instrument Used: 3mm curette Tissue Removed: Yellow slough, devitalized tissue Severity: Fat Layer Exposed Amount of bleeding with debridement: Mild Bleeding Controlled with: Compression and gauze Patient tolerated procedure: Patient tolerated procedure well Post-Debridement Measurements and Additional Note: Post-Debridement Measurements/Treatment - Nurse 1 - General Ulcer Assessment Start: 05/06/22 09:15 Freq: Status: Active Protocol: HARINDER Activity Type Activity Date Activity User E-sign Co-sign Detail Recorded Client Recorded Date Recorded By Document 05/06/22 09:15 DL [id number] 05/06/22 09:24 DL Document 05/13/22 10:11 KR [id number] 05/13/22 10:12 KR Document 05/20/22 09:19 AK [id number] 05/20/22 09:24 AK Document 05/27/22 09:41 KR [id number] 05/27/22 09:47 KR Document 06/03/22 09:38 PL [id number] 06/03/22 09:48 PL 05/06/22 05/13/22 05/20/22 09:15 10:11 09:19 - Today's Visit Information Type of service Follow-up Visit Follow-up Visit Follow-up Visit (Physician/DIE MAKER APPRENTICE (Physician/DIE MAKER APPRENTICE (Physician/DIE MAKER APPRENTICE ) ) ) Arrival Mode Ambulatory Ambulatory Ambulatory Transfer Assistance None Patient Identification Verified (Name & Yes Yes Yes ) Patient Requires Transmission-Based No No Precautions Safety Precautions NA Vital Signs Temperature (97.8 F-99.1 F) 97.8 F 97.5 F L 97.2 F L Temperature Source Temporal Temporal Temporal Pulse Rate (60-100) 83 74 74 Pulse Location Monitor Monitor Monitor Respiratory Rate (12-18) 18 Respiratory rate source Observation Blood Pressure (90/60-120/80) 137/88 H 133/78 H 134/77 H Blood Pressure Mean (mm Hg) 104 96 96 Source Monitor Monitor Monitor Position Sitting Blood Pressure Location Right Arm History Since Last Visit- (Skip if this is Patient's initial visit) Have you changed medications since your No No No last visit? Any new allergies or adverse reactions No No No Had a fall/change in ADL's that may No No No increase risk of falls Signs or symptoms of abuse and/or No No No neglect since last visit Have you been in the hospital since your No No No last visit? Has dressing in place as prescribed Yes Yes No Has compression in place as prescribed N/A No Has offloadiing in place as prescribed Yes N/A N/A Experienced any changes in pain level or No No No management Left Footwear Regular Shoe Regular Shoe Right Footwear Regular Shoe Regular Shoe Pain Scale: 0-10 Numeric Is Patient Pain Free? Yes Yes Yes 05/27/22 06/03/22 09:41 09:38 WC - Today's Visit Information Type of service Follow-up Visit Follow-up Visit (Physician/DIE MAKER APPRENTICE (Physician/DIE MAKER APPRENTICE ) ) Arrival Mode Ambulatory Ambulatory Transfer Assistance None Patient Identification Verified (Name & Yes Yes ) Patient Requires Transmission-Based No Precautions Safety Precautions NA Vital Signs Temperature (97.8 F-99.1 F) 97.3 F L 95.8 F L Temperature Source Temporal Temporal Pulse Rate (60-100) 86 71 Pulse Location Monitor Respiratory Rate (12-18) 20 H Respiratory rate source Blood Pressure (90/60-120/80) 136/86 H 129/67 H Blood Pressure Mean (mm Hg) 102 87 Source Monitor Position Semi-Fowlers Blood Pressure Location Right Arm History Since Last Visit- (Skip if this is Patient's initial visit) Have you changed medications since your No No last visit? Any new allergies or adverse reactions No No Had a fall/change in ADL's that may No No increase risk of falls Signs or symptoms of abuse and/or No No neglect since last visit Have you been in the hospital since your No No last visit? Has dressing in place as prescribed Yes Yes Has compression in place as prescribed N/A N/A Has offloadiing in place as prescribed N/A N/A Experienced any changes in pain level or No No management Left Footwear Regular Shoe Right Footwear Regular Shoe Pain Scale: 0-10 Numeric Is Patient Pain Free? Yes Yes WC - Nurse 1 - General Ulcer Measurement Start: 05/06/22 09:15 Freq: Status: Active Protocol: Activity Type Activity Date Activity User E-sign Co-sign Detail Recorded Client Recorded Date Recorded By Document 05/06/22 09:15 DL [id number] 05/06/22 09:24 DL Document 05/13/22 10:11 KR [id number] 05/13/22 10:12 KR Document 05/20/22 09:19 AK [id number] 05/20/22 09:24 AK Document 05/27/22 09:41 KR [id number] 05/27/22 09:47 KR Document 06/03/22 09:38 PL [id number] 06/03/22 09:48 PL 05/06/22 05/13/22 05/20/22 09:15 10:11 09:19 Wound Center Nurse 1 #1 Right Montoya -Combined with other wound No -Current Size (cm) - Length 2 2 2.3 -Current Size (cm) - Width 2.5 2.5 2.4 -Current Size (cm) - Depth 0.9 0.5 0.6 -Total Square Cm 5.0 5.0 5.52 -Photo Taken No No -Epithelialization None Present -Tunneling No -Tunneling Position (O'clock) -Tunneling Distance (cm) -Undermining/Tunneling No -Undermining/Tunneling Starts (O'clock 4 ) -Undermining/Tunneling Ends (O'clock) 19 -Maximum Distance (cm) 0.5 -Circular Undermining No -Classification - Thickness -Change in Wound Grade/Stage No -Exudate Amt Medium Medium Large -Exudate Type Serosanguineous Serosanguineous Serosanguineous -Wound Margin Distinct, Distinct, Distinct, Outline Outline Outline Attached Attached Attached -Granulation Amt Medium (34-66%) Large (67-100%) None Present (0 %) -Granulation Quality Red Red Qu[place],Red -Slough/Fibrin Yes -Necrosis Amt Medium (34-66%) None Present (0 Medium (34-66%) %) -Necrotic Tissue Type Adherent Slough Adherent Slough -Structure Exposed N/A N/A -Texture (Sania-wound Skin Appearance) Localized Edema Assessed, No Abnormality, ,Scarring Scarring Assessed -Moisture (Sania-wound Skin Appearance) No Abnormality No Abnormality, No Abnormality, Assessed Assessed -Color (Sania-wound Skin Appearance) Hemosiderin No Abnormality, No Abnormality, Staining Assessed Assessed -Temperature (Sania-wound Skin No Abnormality No Abnormality No Abnormality Appearance) (Pt Warm) (Pt Warm) (Pt Warm) -Tenderness on Palpation (Sania-wound Yes No No Skin Appearance) -Ulcer Cleansing Soap and Water Soap and Water Soap and Water -Foul Odor after Cleansing No No No -Anesthetic Used 4% Lidocaine 5% Lidocaine 5% Lidocaine Solution Gel Gel Right Calf (cm) 44.8 Right Ankle (cm) 27.6 05/27/22 06/03/22 09:41 09:38 Wound Center Nurse 1 #1 Right Montoya -Combined with other wound -Current Size (cm) - Length 1.8 1.8 -Current Size (cm) - Width 2.4 1.9 -Current Size (cm) - Depth 0.8 0.3 -Total Square Cm 4.32 3.42 -Photo Taken -Epithelialization -Tunneling -Tunneling Position (O'clock) 7 -Tunneling Distance (cm) 1.0 -Undermining/Tunneling No -Undermining/Tunneling Starts (O'clock 7 ) -Undermining/Tunneling Ends (O'clock) 8 -Maximum Distance (cm) 2.4 -Circular Undermining No -Classification - Thickness Full Thickness with Exposed Support Structure -Change in Wound Grade/Stage -Exudate Amt Large Medium -Exudate Type Serosanguineous -Wound Margin Distinct, Outline Attached -Granulation Amt Large (67-100%) Large (67-100%) -Granulation Quality Red [place] -Slough/Fibrin Yes -Necrosis Amt None Present (0 Small (1-33%) %) -Necrotic Tissue Type Adherent Slough -Structure Exposed -Texture (Snaia-wound Skin Appearance) Assessed, No Abnormality Scarring -Moisture (Sania-wound Skin Appearance) No Abnormality, No Abnormality Assessed -Color (Sania-wound Skin Appearance) No Abnormality, No Abnormality Assessed -Temperature (Sania-wound Skin No Abnormality No Abnormality Appearance) (Pt Warm) (Pt Warm) -Tenderness on Palpation (Sania-wound No No Skin Appearance) -Ulcer Cleansing Soap and Water Soap and Water -Foul Odor after Cleansing No No -Anesthetic Used 5% Lidocaine 5% Lidocaine Gel Gel Right Calf (cm) 43.2 Right Ankle (cm) 26 WC - Nurse 2 - General Ulcer CM Notes Start: 05/06/22 09:15 Freq: Status: Active Protocol: Activity Type Activity Date Activity User E-sign Co-sign Detail Recorded Client Recorded Date Recorded By Document 05/06/22 09:47 MW [id number] 05/06/22 10:03 MW Document 05/13/22 10:35 MW [id number] 05/13/22 10:47 MW Document 05/20/22 09:33 MW [id number] 05/20/22 09:51 MW Document 05/27/22 10:06 MW [id number] 05/27/22 10:14 MW Document 06/03/22 09:55 MW [id number] 06/03/22 10:03 MW 05/06/22 05/13/22 05/20/22 09:47 10:35 09:33 Wound Center Nurse 2 #1 Right Montoya -Time 09:47 10:36 09:33 -Correct Patient Yes Yes Yes -Correct Side, Site, Position Yes Yes Yes -Correct Procedure Yes Yes Yes -Procedure Performed Yes Yes Yes -Type of Procedure Debridement Debridement Debridement -Clinical Debridement Subcutaneous Subcutaneous Subcutaneous -Tissue Removed Subcutaneous Subcutaneous Subcutaneous -Post Debridement (cm) - Length 2.4 2.1 2.3 -Post Debridement (cm) - Width 2.5 2.7 2.5 -Post Debridement (cm) - Depth 1.1 0.6 0.6 -Total Square (Post) (cm) 6.00 5.67 5.75 -Area of Debridement (cm) - Length 2.4 2.1 2.3 -Area of Debridement (cm) - Width 2.5 2.7 2.5 -Total Square (Area) (cm) 6.00 5.67 5.75 -Tunneling No No No -Undermining/Tunneling Yes Yes Yes -Undermining/Tunneling Starts (O'clock 4 7 7 ) -Undermining/Tunneling Ends (O'clock) 10 9 9 -Maximum Distance (cm) 4.1 4.0 4.5 -Circular Undermining No No No -Wound/Ulcer Outcome Not Healed Not Healed Not Healed -Ulcer Cleansing Rinsed/ Rinsed/ Rinsed/ Irrigated with Irrigated with Irrigated with Saline Saline Saline -Foul Odor after Cleansing No No No -Bioengineered Tissue No No No -Bleeding Controlled with Pressure Pressure Pressure -Treatment Response Procedure Procedure Procedure Tolerated Well Tolerated Well Tolerated Well -Offloading No No No -Debridement - Subq, 1st 20sq cm Yes Yes Yes Pain Scale: 0-10 Numeric Is Patient Pain Free? Yes Yes Yes 05/27/22 06/03/22 10:06 09:55 Wound Center Nurse 2 #1 Right Montoya -Time 10:06 09:55 -Correct Patient Yes Yes -Correct Side, Site, Position Yes Yes -Correct Procedure Yes Yes -Procedure Performed Yes Yes -Type of Procedure Debridement Debridement -Clinical Debridement Subcutaneous Subcutaneous -Tissue Removed Subcutaneous Subcutaneous -Post Debridement (cm) - Length 1.9 1.8 -Post Debridement (cm) - Width 2.3 1.8 -Post Debridement (cm) - Depth 0.2 0.3 -Total Square (Post) (cm) 4.37 3.24 -Area of Debridement (cm) - Length 1.9 1.8 -Area of Debridement (cm) - Width 2.3 1.8 -Total Square (Area) (cm) 4.37 3.24 -Tunneling No No -Undermining/Tunneling Yes Yes -Undermining/Tunneling Starts (O'clock 7 7 ) -Undermining/Tunneling Ends (O'clock) 9 9 -Maximum Distance (cm) 3.5 1.1 -Circular Undermining No No -Wound/Ulcer Outcome Not Healed Not Healed -Ulcer Cleansing Rinsed/ Wound Cleanser Irrigated with Saline -Foul Odor after Cleansing No No -Bioengineered Tissue No No -Bleeding Controlled with Pressure Pressure -Treatment Response Procedure Procedure Tolerated Well Tolerated Well -Offloading No No -Debridement - Subq, 1st 20sq cm Yes Yes Pain Scale: 0-10 Numeric Is Patient Pain Free? Yes Yes - Nurse 3 - General Ulcer D/C NN Start: 05/06/22 09:15 Freq: Status: Active Protocol: Activity Type Activity Date Activity User E-sign Co-sign Detail Recorded Client Recorded Date Recorded By Document 05/06/22 10:17 REN [id number] 05/06/22 10:18 RB Document 05/13/22 10:53 KR [id number] 05/13/22 10:54 KR Document 05/20/22 12:33 AK [id number] 05/20/22 12:33 AK Edit Result 05/20/22 12:33 AK (1) [id number] 05/23/22 06:50 PL Document 05/27/22 10:31 KR [id number] 05/27/22 10:32 KR Document 06/03/22 10:04 MW [id number] 06/03/22 10:29 MW (1) #1 Right Montoya - NPWT Application Charge NPWT </= 50 sq cm => NPWT & Debridement ($) => (nc) 05/06/22 05/13/22 05/20/22 10:17 10:53 12:33 Wound Care Nurse 3 #1 Right Montoya -Ulcer Cleansing Wound Cleanser Rinsed/ Rinsed/ Irrigated with Irrigated with Saline Saline -Foul Odor after Cleansing No -Negative Pressure Wound Therapy Continue Continue -Setting (mmHg) 150 150 -Negative Pressure is Continuous Continuous -Regranex (If Applicable) Continue -Primary Dressing Applied Aquacel AG 4x4, Aquacel Rope, Mepilex Border -Other Dressing -Other Covering -NPWT Application Charge NPWT & NPWT & Debridement (nc Debridement (nc ) ) -Aquacel AG 4x4 1 -Aquacel Rope 1 -Mepilex Border 1 Treatment Response Procedure Tolerated Well Pain Scale: 0-10 Numeric Is Patient Pain Free? Yes Yes Yes Teaching: Wound Center Dressing Your Wound -Person Taught -Teaching Method -Response to teaching WC - Visit Discharge Discharge Condition Stable Stable Stable Ambulatory Status Ambulatory Ambulatory Ambulatory Transportation Private Auto Private Auto Private Auto Accompanied by daughter daughter Medication Reconcilliation completed & No Yes provided to patient/care provider Clinical Summary of Care Provided Yes Yes 05/27/22 06/03/22 10:31 10:04 Wound Care Nurse 3 #1 Right Montoya -Ulcer Cleansing Rinsed/ Rinsed/ Irrigated with Irrigated with Saline Saline -Foul Odor after Cleansing No -Negative Pressure Wound Therapy Continue Continue -Setting (mmHg) 150 150 -Negative Pressure is Continuous Continuous -Regranex (If Applicable) Continue -Primary Dressing Applied -Other Dressing black foam -Other Covering vac drape -NPWT Application Charge NPWT & NPWT & Debridement (nc Debridement (nc ) ) -Aquacel AG 4x4 -Aquacel Rope -Mepilex Border Treatment Response Procedure Tolerated Well Pain Scale: 0-10 Numeric Is Patient Pain Free? Yes Yes Teaching: Wound Center Dressing Your Wound -Person Taught Patient,Family -Teaching Method Discussion -Response to teaching Verbalize understanding WC - Visit Discharge Discharge Condition Stable Stable Ambulatory Status Ambulatory Ambulatory Transportation Private Auto Private Auto Accompanied by daughter daughter Medication Reconcilliation completed & No provided to patient/care provider Clinical Summary of Care Provided Yes Assessment/Plan Assessment/Plan (1) Cellulitis of right lower leg: CODE(S): L03.115 - Cellulitis of right lower limb (2) Contusion of right lower leg, sequela: CODE(S): S80.11XS - Contusion of right lower leg, sequela (3) Venous ulcer of right leg: CODE(S): I83.019 - Varicose veins of right lower extremity with ulcer of unspecified site; L97.919 - Non-pressure chronic ulcer of unspecified part of right lower leg with unspecified severity PLAN: Plan Debridement performed today in clinic as annotated above. At home wound-care instructions: Wound vac re-applied today. Will plan to change on Monday and she will return here Monday. Keep dressing clean and dry. Due to the large cavity of the ulcer, a wound vac would be beneficial for treatment and to decrease the length of time needed to heal the ulcer. It would also prevent deeper infection and ultimate limb loss. If there is lack of improvement, I would consider CT scan for further evaluation to se if there is any underlying abscess cavity. We have referred to home health for patient to undergo wound vac change once weekly with them and once weekly here at her wound care appointment. Off-loading: The patient was instructed to avoid pressure and friction on the affected areas. Reposition every 2 hours at minimum. Avoid prolonged standing and/or dangling of legs. When seated, feet should be elevated at chest level. Frequent ambulation is encouraged. Diet: Patient encouraged to increase protein intake while taking caution to avoid high carbohydrate and/or sugar intake. Labs/cultures/imaging: Wound culture was positive for multiple bacteria and she completed treatment with Linezolid and has developed thrush. Diflucan was prescribed. Follow-up: Return in 1 week for wound care follow up. Return sooner or report to the emergency room should symptoms worsen, or new symptoms arise. Note: [employer] speech recognition dance instructor software was used to create portions of this document. Sound-alike and misspelled words, as well as other dance instructor errors may be contained in the documentation.
== END 2022-06-03 23:59 | disposition home or self-care (01) ==
LOC: WC 09:30
PROVIDERS: PCP Family Medicine; Visit Provider Family Medicine
DX: I83.018 Varicose veins of right lower extremity with ulcer other part of lower leg (principal); L97.812 Non-pressure chronic ulcer of other part of right lower leg with fat layer exposed; L03.115 Cellulitis of right lower limb; S80.11XS Contusion of right lower leg, sequela; W22.09XS Striking against other stationary object, sequela
CPT/HCPCS: 11042; 87070; 87075; 87077; 87186; 87205; 97605

== ENCOUNTER 2022-06-24 10:00 | Outpatient (RCR) | payer OTHER, SELFPAY ==
[2022-06-04 01:40] VITALS: BP 129/67; PULSE 71; RESP 20; TEMP 35.4
[2022-06-10 10:36] VITALS: BP 137/82; PULSE 77; TEMP 36.4
--- NOTE | 2022-06-10 11:29 | PCM.WC.PN ---
History of Present Illness Date of Service: 06/10/22 Chief Complaint: ulcer right montoya History of Wound: Marietta is a pleasant 51 yo woman who presents to the wound healing center today for evaluation and treatment of an ulcer of her right montoya that has been present since January 2022. She initially injured her montoya by striking it against an extension ladder and developed a large hematoma. An X-ray was done to rule out fracture of bone at that time and this was negative for fracture. The hematoma has decreased in size over time and the wound to her montoya has started to heal at times but never fully healed since the initial injury. In the last week it has gotten larger and become painful and she went to urgent care and was prescribed doxycycline for antibiotics and saw her PCP on Monday who performed a wound culture and referred her here for evaluation and treatment. She has applied bacitracin and triple antibiotic ointment intermittently over the presence of the ulcer. On Monday04/25/2022, she was instructed to start using calcium alginate and kerlix to the ulcer and this has improved the amount of slough to the ulcer. She has moderate drainage. She is tolerating doxycycline treatment and denies any fever, chills, increased erythema or increase in drainage or pain. Wound culture performed by PCP showed Enterobacter, not sensitive to doxycycline. Subjective Subjective Marietta's ulcer is improved in appearance since last week. There is granulation and less slough, devitalized tissue. Pain is tolerable. She tolerated wound vac treatment. She denies fever or chills, erythema. Objective Data Objective Data Vital Signs: Vital Signs Temp Pulse Resp BP 97.6 F L 77 20 H 137/82 H 06/10/22 10:36 06/10/22 10:36 06/04/22 01:40 06/10/22 10:36 Physical Exam Const alert, oriented x3 and no apparent distress General Appearance: cooperative and comfortable HEENT normocephalic and head/scalp atraumatic Resp normal respiratory effort Effort and Inspection: able to speak in complete sentences Cardio regular rate and regular rhythm Skin Wounds: wounds noted Wound Narrative: as in clinical panel Psych mental status grossly normal, thought process normal, cooperative and affect normal Debridement Note Debridement Note Wound debrided: right montoya Laterality: Right Type of Debridement: Excisional debridement Anesthesia Used: 4% Lidocaine Solution and Cetacaine Depth: Down to and including healthy tissue and in the subcutaneous layer Percentage of wound debrided: 100 Instrument Used: 3mm curette Tissue Removed: Yellow slough, devitalized tissue Severity: Fat Layer Exposed Amount of bleeding with debridement: Mild Bleeding Controlled with: Compression and gauze Patient tolerated procedure: Patient tolerated procedure well Post-Debridement Measurements and Additional Note: Post-Debridement Measurements/Treatment GREG - Nurse 1 - General Ulcer Assessment Start: 06/10/22 10:35 Freq: Status: Active Protocol: HARINDER Activity Type Activity Date Activity User E-sign Co-sign Detail Recorded Client Recorded Date Recorded By Document 06/10/22 10:36 KR [id number] 06/10/22 10:39 PAMELA 06/10/22 10:36 WC - Today's Visit Information Type of service Follow-up Visit (Physician/EMERGENCY SERVICES PROFESSIONAL ) Arrival Mode Ambulatory Patient Identification Verified (Name & Yes ) Vital Signs Temperature (97.8 F-99.1 F) 97.6 F L Temperature Source Temporal Pulse Rate (60-100) 77 Pulse Location Monitor Blood Pressure (90/60-120/80) 137/82 H Blood Pressure Mean (mm Hg) 100 Source Monitor Position Sitting Blood Pressure Location Left Arm History Since Last Visit- (Skip if this is Patient's initial visit) Have you changed medications since your No last visit? Any new allergies or adverse reactions No Had a fall/change in ADL's that may No increase risk of falls Signs or symptoms of abuse and/or No neglect since last visit Have you been in the hospital since your No last visit? Has dressing in place as prescribed Yes Has compression in place as prescribed N/A Has offloadiing in place as prescribed N/A Experienced any changes in pain level or No management Left Footwear Regular Shoe Right Footwear Regular Shoe Pain Scale: 0-10 Numeric Is Patient Pain Free? Yes - Nurse 1 - General Ulcer Measurement Start: 06/10/22 10:35 Freq: Status: Active Protocol: Activity Type Activity Date Activity User E-sign Co-sign Detail Recorded Client Recorded Date Recorded By Document 06/10/22 10:36 KR [id number] 06/10/22 10:39 PAMELA 06/10/22 10:36 Wound Center Nurse 1 #1 Right Montoya -Current Size (cm) - Length 1.4 -Current Size (cm) - Width 2 -Current Size (cm) - Depth 0.2 -Total Square Cm 2.8 -Exudate Amt Small -Exudate Type Serosanguineous -Wound Margin Distinct, Outline Attached -Granulation Amt Large (67-100%) -Granulation Quality Red -Necrosis Amt None Present (0 %) -Texture (Sania-wound Skin Appearance) Assessed, Scarring -Moisture (Sania-wound Skin Appearance) No Abnormality, Assessed -Color (Sania-wound Skin Appearance) No Abnormality, Assessed -Temperature (Sania-wound Skin No Abnormality Appearance) (Pt Warm) -Tenderness on Palpation (Sania-wound No Skin Appearance) -Ulcer Cleansing Soap and Water -Foul Odor after Cleansing No -Anesthetic Used 5% Lidocaine Gel WC - Nurse 2 - General Ulcer CM Notes Start: 06/10/22 10:35 Freq: Status: Active Protocol: Activity Type Activity Date Activity User E-sign Co-sign Detail Recorded Client Recorded Date Recorded By Document 06/10/22 10:55 MW [id number] 06/10/22 11:04 MW 06/10/22 10:55 Wound Center Nurse 2 -Time 10:56 -Correct Patient Yes -Correct Side, Site, Position Yes -Correct Procedure Yes -Procedure Performed Yes -Type of Procedure Incision & Drainage -Clinical Debridement Subcutaneous -Tissue Removed Subcutaneous -Post Debridement (cm) - Length 1.5 -Post Debridement (cm) - Width 2.0 -Post Debridement (cm) - Depth 0.3 -Total Square (Post) (cm) 3.00 -Area of Debridement (cm) - Length 1.5 -Area of Debridement (cm) - Width 2.0 -Total Square (Area) (cm) 3.00 -Tunneling No -Undermining/Tunneling No -Circular Undermining No -Wound/Ulcer Outcome Not Healed -Ulcer Cleansing Rinsed/ Irrigated with Saline -Foul Odor after Cleansing No -Bioengineered Tissue No -Bleeding Controlled with Pressure -Treatment Response Procedure Tolerated Well -Offloading No -Debridement - Subq, 1st 20sq cm Yes Pain Scale: 0-10 Numeric Is Patient Pain Free? Yes WC - Nurse 3 - General Ulcer D/C NN Start: 06/10/22 10:35 Freq: Status: Active Protocol: Activity Type Activity Date Activity User E-sign Co-sign Detail Recorded Client Recorded Date Recorded By Document 06/10/22 11:21 RB [id number] 06/10/22 11:22 RB 06/10/22 11:21 Wound Care Nurse 3 #1 Right [place] -Ulcer Cleansing Rinsed/ Irrigated with Saline -Primary Dressing Applied Promogran -Primary Dressing Covered/Secured with Dry Gauze, Secured with Tape -Promogran 3 Right -Tubular Bandage Double Layer -Size of Tubigrip Used Size E -Size E ($) 2 Treatment Response Procedure Tolerated Well Pain Scale: 0-10 Numeric Is Patient Pain Free? Yes WC - Visit Discharge Discharge Condition Stable Ambulatory Status Ambulatory Transportation Private Auto Medication Reconcilliation completed & No provided to patient/care provider Clinical Summary of Care Provided Yes Assessment/Plan Assessment/Plan (1) Cellulitis of right lower leg: CODE(S): L03.115 - Cellulitis of right lower limb (2) Contusion of right lower leg, sequela: CODE(S): S80.11XS - Contusion of right lower leg, sequela (3) Venous ulcer of right leg: CODE(S): I83.019 - Varicose veins of right lower extremity with ulcer of unspecified site; L97.919 - Non-pressure chronic ulcer of unspecified part of right lower leg with unspecified severity PLAN: Plan Debridement performed today in clinic as annotated above. At home wound-care instructions: Wound vac treatment will be discontinued today as the goal of treatment has been met. She will dress her wound with Promogran and moisten and cover with gauze changed daily. We will use double layer tubigrip for compression. She no longer requires Home Health services since wound vac treatment is discontinued. Off-loading: The patient was instructed to avoid pressure and friction on the affected areas. Reposition every 2 hours at minimum. Avoid prolonged standing and/or dangling of legs. When seated, feet should be elevated at chest level. Frequent ambulation is encouraged. Diet: Patient encouraged to increase protein intake while taking caution to avoid high carbohydrate and/or sugar intake. Labs/cultures/imaging: Wound culture was positive for multiple bacteria and she completed treatment with Linezolid without any current sign of infection. Follow-up: Return in 2 weeks for wound care follow up. Return sooner or report to the emergency room should symptoms worsen, or new symptoms arise. Note: [employer] speech recognition resp ther software was used to create portions of this document. Sound-alike and misspelled words, as well as other resp ther errors may be contained in the documentation.
[2022-06-24 10:22] VITALS: BP 107/71; PULSE 62; RESP 18; TEMP 36
--- NOTE | 2022-06-24 13:54 | PCM.WC.PN ---
History of Present Illness Date of Service: 06/24/22 Chief Complaint: ulcer right montoya History of Wound: Marietta is a pleasant 51 yo woman who presents to the wound healing center today for evaluation and treatment of an ulcer of her right montoya that has been present since January 2022. She initially injured her montoya by striking it against an extension ladder and developed a large hematoma. An X-ray was done to rule out fracture of bone at that time and this was negative for fracture. The hematoma has decreased in size over time and the wound to her montoya has started to heal at times but never fully healed since the initial injury. In the last week it has gotten larger and become painful and she went to urgent care and was prescribed doxycycline for antibiotics and saw her PCP on Monday who performed a wound culture and referred her here for evaluation and treatment. She has applied bacitracin and triple antibiotic ointment intermittently over the presence of the ulcer. On Monday04/25/2022, she was instructed to start using calcium alginate and kerlix to the ulcer and this has improved the amount of slough to the ulcer. She has moderate drainage. She is tolerating doxycycline treatment and denies any fever, chills, increased erythema or increase in drainage or pain. Wound culture performed by PCP showed Enterobacter, not sensitive to doxycycline. Subjective Subjective Marietta's ulcer is improved in appearance since last week. There is granulation and less slough, devitalized tissue. She tolerated treatment with promogran. She denies fever or chills, erythema. Objective Data Objective Data Vital Signs: Vital Signs Temp Pulse Resp BP 96.8 F L 62 18 107/71 06/24/22 10:22 06/24/22 10:06/24/22 10:06/24/22 10:22 Physical Exam Const alert, oriented x3 and no apparent distress General Appearance: cooperative and comfortable HEENT normocephalic and head/scalp atraumatic Resp normal respiratory effort Effort and Inspection: able to speak in complete sentences Cardio regular rate and regular rhythm Skin Wounds: wounds noted Wound Narrative: as in clinical panel Psych mental status grossly normal, thought process normal, cooperative and affect normal Debridement Note Debridement Note Wound debrided: right montoya Laterality: Right Type of Debridement: Excisional debridement Anesthesia Used: 4% Lidocaine Solution and Cetacaine Depth: Down to and including healthy tissue and in the subcutaneous layer Percentage of wound debrided: 100 Instrument Used: 3mm curette Tissue Removed: Yellow slough, devitalized tissue Severity: Fat Layer Exposed Amount of bleeding with debridement: Mild Bleeding Controlled with: Compression and gauze Patient tolerated procedure: Patient tolerated procedure well Post-Debridement Measurements and Additional Note: Post-Debridement Measurements/Treatment GREG - Nurse 1 - General Ulcer Assessment Start: 06/10/22 10:35 Freq: Status: Active Protocol: HARINDER Activity Type Activity Date Activity User E-sign Co-sign Detail Recorded Client Recorded Date Recorded By Document 06/10/22 10:36 KR [id number] 06/10/22 10:39 KR Document 06/24/22 10:22 RB [id number] 06/24/22 10:25 RB 06/10/22 06/24/22 10:36 10:22 WC - Today's Visit Information Type of service Follow-up Visit Follow-up Visit (Physician/WOMEN'S SOCCER COACH (Physician/WOMEN'S SOCCER COACH ) ) Arrival Mode Ambulatory Ambulatory Transfer Assistance None Patient Identification Verified (Name & Yes Yes ) Patient Requires Transmission-Based No Precautions Vital Signs Temperature (97.8 F-99.1 F) 97.6 F L 96.8 F L Temperature Source Temporal Temporal Pulse Rate (60-100) 77 62 Pulse Location Monitor Monitor Respiratory Rate (12-18) 18 Respiratory rate source Observation Blood Pressure (90/60-120/80) 137/82 H 107/71 Blood Pressure Mean (mm Hg) 100 83 Source Monitor Monitor Position Sitting Semi-Fowlers Blood Pressure Location Left Arm Left Arm History Since Last Visit- (Skip if this is Patient's initial visit) Have you changed medications since your No No last visit? Any new allergies or adverse reactions No No Had a fall/change in ADL's that may No No increase risk of falls Signs or symptoms of abuse and/or No No neglect since last visit Have you been in the hospital since your No No last visit? Has dressing in place as prescribed Yes Yes Has compression in place as prescribed N/A No Has offloadiing in place as prescribed N/A No Experienced any changes in pain level or No No management Left Footwear Regular Shoe Regular Shoe Right Footwear Regular Shoe Regular Shoe Pain Scale: 0-10 Numeric Is Patient Pain Free? Yes Yes GREG - Nurse 1 - General Ulcer Measurement Start: 06/10/22 10:35 Freq: Status: Active Protocol: Activity Type Activity Date Activity User E-sign Co-sign Detail Recorded Client Recorded Date Recorded By Document 06/10/22 10:36 KR [id number] 06/10/22 10:39 KR Document 06/24/22 10:22 RB [id number] 06/24/22 10:25 RB 06/10/22 06/24/22 10:36 10:22 Wound Center Nurse 1 #1 Right Montoya -Combined with other wound No -Current Size (cm) - Length 1.4 1.2 -Current Size (cm) - Width 2 1.2 -Current Size (cm) - Depth 0.2 0.1 -Total Square Cm 2.8 1.44 -Photo Taken Yes -Tunneling No -Undermining/Tunneling No -Circular Undermining No -Exudate Amt Small Medium -Exudate Type Serosanguineous Serosanguineous -Wound Margin Distinct, Distinct, Outline Outline Attached Attached -Granulation Amt Large (67-100%) Medium (34-66%) -Granulation Quality Red [place] -Slough/Fibrin Yes -Necrosis Amt None Present (0 Small (1-33%) %) -Necrotic Tissue Type Adherent Slough -Structure Exposed N/A -Texture (Sania-wound Skin Appearance) Assessed, Assessed, Scarring Scarring -Moisture (Sania-wound Skin Appearance) No Abnormality, Assessed Assessed -Color (Sania-wound Skin Appearance) No Abnormality, Assessed Assessed -Temperature (Sania-wound Skin No Abnormality No Abnormality Appearance) (Pt Warm) (Pt Warm) -Tenderness on Palpation (Sania-wound No No Skin Appearance) -Ulcer Cleansing Soap and Water Wound Cleanser -Foul Odor after Cleansing No No -Anesthetic Used 5% Lidocaine 5% Lidocaine Gel Gel Lower Limb Edema Present Yes Right Calf (cm) 44.5 Right Ankle (cm) 25 WC - Nurse 2 - General Ulcer CM Notes Start: 06/10/22 10:35 Freq: Status: Active Protocol: Activity Type Activity Date Activity User E-sign Co-sign Detail Recorded Client Recorded Date Recorded By Document 06/10/22 10:55 MW [id number] 06/10/22 11:04 MW Document 06/24/22 10:35 MW [id number] 06/24/22 10:41 MW 06/10/22 06/24/22 10:55 10:35 Wound Center Nurse 2 #1 Right Montoya -Time 10:56 10:35 -Correct Patient Yes Yes -Correct Side, Site, Position Yes Yes -Correct Procedure Yes Yes -Procedure Performed Yes Yes -Type of Procedure Incision & Debridement Drainage -Clinical Debridement Subcutaneous Subcutaneous -Tissue Removed Subcutaneous Subcutaneous -Post Debridement (cm) - Length 1.5 1.8 -Post Debridement (cm) - Width 2.0 1.4 -Post Debridement (cm) - Depth 0.3 0.1 -Total Square (Post) (cm) 3.00 2.52 -Area of Debridement (cm) - Length 1.5 1.8 -Area of Debridement (cm) - Width 2.0 1.4 -Total Square (Area) (cm) 3.00 2.52 -Tunneling No No -Undermining/Tunneling No No -Circular Undermining No No -Wound/Ulcer Outcome Not Healed Not Healed -Ulcer Cleansing Rinsed/ Rinsed/ Irrigated with Irrigated with Saline Saline -Foul Odor after Cleansing No No -Bioengineered Tissue No No -Bleeding Controlled with Pressure Pressure -Treatment Response Procedure Procedure Tolerated Well Tolerated Well -Offloading No No -Debridement - Subq, 1st 20sq cm Yes Yes Pain Scale: 0-10 Numeric Is Patient Pain Free? Yes Yes - Nurse 3 - General Ulcer D/C NN Start: 06/10/22 10:35 Freq: Status: Active Protocol: Activity Type Activity Date Activity User E-sign Co-sign Detail Recorded Client Recorded Date Recorded By Document 06/10/22 11:21 [id number] 06/10/22 11:22 RB 06/10/22 11:21 Wound Care Nurse 3 #1 Right [place] -Ulcer Cleansing Rinsed/ Irrigated with Saline -Primary Dressing Applied Promogran -Primary Dressing Covered/Secured with Dry Gauze, Secured with Tape -Promogran 3 Right -Tubular Bandage Double Layer -Size of Tubigrip Used Size E -Size E ($) 2 Treatment Response Procedure Tolerated Well Pain Scale: 0-10 Numeric Is Patient Pain Free? Yes WC - Visit Discharge Discharge Condition Stable Ambulatory Status Ambulatory Transportation Private Auto Medication Reconcilliation completed & No provided to patient/care provider Clinical Summary of Care Provided Yes Assessment/Plan Assessment/Plan (1) Cellulitis of right lower leg: CODE(S): L03.115 - Cellulitis of right lower limb (2) Contusion of right lower leg, sequela: CODE(S): S80.11XS - Contusion of right lower leg, sequela (3) Venous ulcer of right leg: CODE(S): I83.019 - Varicose veins of right lower extremity with ulcer of unspecified site; L97.919 - Non-pressure chronic ulcer of unspecified part of right lower leg with unspecified severity PLAN: Plan Debridement performed today in clinic as annotated above. At home wound-care instructions: She will dress her wound with Promogran and moisten and cover with gauze changed daily. We will use double layer tubigrip for compression. She no longer requires Home Health services since wound vac treatment is discontinued. Off-loading: The patient was instructed to avoid pressure and friction on the affected areas. Reposition every 2 hours at minimum. Avoid prolonged standing and/or dangling of legs. When seated, feet should be elevated at chest level. Frequent ambulation is encouraged. Diet: Patient encouraged to increase protein intake while taking caution to avoid high carbohydrate and/or sugar intake. Labs/cultures/imaging: Wound culture was positive for multiple bacteria and she completed treatment with Linezolid without any current sign of infection. Follow-up: Return in 2 weeks for wound care follow up. Return sooner or report to the emergency room should symptoms worsen, or new symptoms arise. Note: [employer] speech recognition energy infrastructure engineer software was used to create portions of this document. Sound-alike and misspelled words, as well as other energy infrastructure engineer errors may be contained in the documentation.
== END 2022-07-04 23:59 | disposition home or self-care (01) ==
LOC: WC 10:00
PROVIDERS: PCP Family Medicine; Visit Provider Family Medicine
DX: I83.018 Varicose veins of right lower extremity with ulcer other part of lower leg (principal); L97.812 Non-pressure chronic ulcer of other part of right lower leg with fat layer exposed; L03.115 Cellulitis of right lower limb; I87.2 Venous insufficiency (chronic) (peripheral); S80.11XS Contusion of right lower leg, sequela; W22.09XS Striking against other stationary object, sequela
CPT/HCPCS: 11042

== ENCOUNTER 2022-07-15 09:30 | Outpatient (RCR) | payer OTHER, SELFPAY ==
[2022-07-05 00:34] VITALS: BP 107/71; PULSE 62; RESP 18; TEMP 36
[2022-07-08 09:46] VITALS: BP 104/57; PULSE 85; TEMP 36.1
--- NOTE | 2022-07-08 10:54 | PCM.WC.PN ---
History of Present Illness Date of Service: 07/08/22 Chief Complaint: ulcer right montoya History of Wound: Marietta is a pleasant 51 yo woman who presents to the wound healing center today for evaluation and treatment of an ulcer of her right montoya that has been present since January 2022. She initially injured her montoya by striking it against an extension ladder and developed a large hematoma. An X-ray was done to rule out fracture of bone at that time and this was negative for fracture. The hematoma has decreased in size over time and the wound to her montoya has started to heal at times but never fully healed since the initial injury. In the last week it has gotten larger and become painful and she went to urgent care and was prescribed doxycycline for antibiotics and saw her PCP on Monday who performed a wound culture and referred her here for evaluation and treatment. She has applied bacitracin and triple antibiotic ointment intermittently over the presence of the ulcer. On Monday04/25/2022, she was instructed to start using calcium alginate and kerlix to the ulcer and this has improved the amount of slough to the ulcer. She has moderate drainage. She is tolerating doxycycline treatment and denies any fever, chills, increased erythema or increase in drainage or pain. Wound culture performed by PCP showed Enterobacter, not sensitive to doxycycline. Subjective Subjective Marietta's ulcer is improved in appearance since 2 weeks ago. There is granulation and minimal slough, devitalized tissue. She tolerated treatment with promogran. She denies fever or chills, erythema. Objective Data Objective Data Vital Signs: Vital Signs Temp Pulse Resp BP 97.0 F L 85 18 104/57 L 07/08/22 09:46 07/08/22 09:46 07/05/22 00:34 07/08/22 09:46 Physical Exam Const alert, oriented x3 and no apparent distress General Appearance: cooperative and comfortable HEENT normocephalic and head/scalp atraumatic Resp normal respiratory effort Effort and Inspection: able to speak in complete sentences Cardio regular rate and regular rhythm Skin Wounds: wounds noted Wound Narrative: as in clinical panel Psych mental status grossly normal, thought process normal, cooperative and affect normal Debridement Note Debridement Note Wound debrided: right montoya Laterality: Right Type of Debridement: Excisional debridement Anesthesia Used: 4% Lidocaine Solution and Cetacaine Depth: Down to and including healthy tissue and in the subcutaneous layer Percentage of wound debrided: 100 Instrument Used: 3mm curette Tissue Removed: Yellow slough, devitalized tissue Severity: Fat Layer Exposed Amount of bleeding with debridement: Mild Bleeding Controlled with: Compression and gauze Patient tolerated procedure: Patient tolerated procedure well Post-Debridement Measurements and Additional Note: Post-Debridement Measurements/Treatment - Nurse 1 - General Ulcer Assessment Start: 07/08/22 09:46 Freq: Status: Active Protocol: HARINDER Activity Type Activity Date Activity User E-sign Co-sign Detail Recorded Client Recorded Date Recorded By Document 07/08/22 09:46 PAMELA [id number] 07/08/22 09:47 PAMELA 07/08/22 09:46 - Today's Visit Information Type of service Follow-up Visit (Physician/CADDY/CADDIE SUPERVISOR ) Arrival Mode Ambulatory Patient Identification Verified (Name & Yes ) Vital Signs Temperature (97.8 F-99.1 F) 97.0 F L Temperature Source Temporal Pulse Rate (60-100) 85 Pulse Location Monitor Blood Pressure (90/60-120/80) 104/57 L Blood Pressure Mean (mm Hg) 72 Source Monitor Position Semi-Fowlers Blood Pressure Location Left Arm History Since Last Visit- (Skip if this is Patient's initial visit) Have you changed medications since your No last visit? Any new allergies or adverse reactions No Had a fall/change in ADL's that may No increase risk of falls Signs or symptoms of abuse and/or No neglect since last visit Have you been in the hospital since your No last visit? Has dressing in place as prescribed Yes Has compression in place as prescribed N/A Has offloadiing in place as prescribed N/A Experienced any changes in pain level or No management Left Footwear Regular Shoe Right Footwear Regular Shoe Pain Scale: 0-10 Numeric Is Patient Pain Free? Yes - Nurse 1 - General Ulcer Measurement Start: 07/08/22 09:46 Freq: Status: Active Protocol: Activity Type Activity Date Activity User E-sign Co-sign Detail Recorded Client Recorded Date Recorded By Document 07/08/22 09:46 PAMEAL [id number] 07/08/22 09:47 PAMELA 07/08/22 09:46 Wound Center Nurse 1 #1 Right Montoya -Current Size (cm) - Length 0.5 -Current Size (cm) - Width 0.8 -Current Size (cm) - Depth 0.1 -Total Square Cm 0.40 -Exudate Amt Small -Exudate Type Serosanguineous -Wound Margin Distinct, Outline Attached -Granulation Amt Small (1-33%) -Granulation Quality Red -Necrosis Amt None Present (0 %) -Texture (Sania-wound Skin Appearance) Assessed, Scarring -Moisture (Sania-wound Skin Appearance) No Abnormality, Assessed -Color (Sania-wound Skin Appearance) No Abnormality, Assessed -Temperature (Sania-wound Skin No Abnormality Appearance) (Pt Warm) -Tenderness on Palpation (Sania-wound No Skin Appearance) -Ulcer Cleansing Rinsed/ Irrigated with Saline -Foul Odor after Cleansing No -Anesthetic Used 5% Lidocaine Gel WC - Nurse 2 - General Ulcer CM Notes Start: 07/08/22 09:46 Freq: Status: Active Protocol: Activity Type Activity Date Activity User E-sign Co-sign Detail Recorded Client Recorded Date Recorded By Document 07/08/22 09:58 MW [id number] 07/08/22 10:03 MW 07/08/22 09:58 Wound Center Nurse 2 -Time 09:59 -Correct Patient Yes -Correct Side, Site, Position Yes -Correct Procedure Yes -Procedure Performed Yes -Type of Procedure Debridement -Clinical Debridement Subcutaneous -Tissue Removed Subcutaneous -Post Debridement (cm) - Length 0.8 -Post Debridement (cm) - Width 1.1 -Post Debridement (cm) - Depth 0.1 -Total Square (Post) (cm) 0.88 -Area of Debridement (cm) - Length 0.8 -Area of Debridement (cm) - Width 1.1 -Total Square (Area) (cm) 0.88 -Tunneling No -Undermining/Tunneling No -Circular Undermining No -Wound/Ulcer Outcome Not Healed -Ulcer Cleansing Rinsed/ Irrigated with Saline -Foul Odor after Cleansing No -Bioengineered Tissue No -Bleeding Controlled with Pressure -Treatment Response Procedure Tolerated Well -Offloading No -Debridement - Subq, 1st 20sq cm Yes Pain Scale: 0-10 Numeric Is Patient Pain Free? Yes WC - Nurse 3 - General Ulcer D/C NN Start: 07/08/22 09:46 Freq: Status: Active Protocol: Activity Type Activity Date Activity User E-sign Co-sign Detail Recorded Client Recorded Date Recorded By Document 07/08/22 10:12 [id number] 07/08/22 10:12 PAMELA 07/08/22 10:12 Wound Care Nurse 3 #1 Right Montoya -Ulcer Cleansing Rinsed/ Irrigated with Saline -Primary Dressing Applied C Hydrogel ($) -Primary Dressing Covered/Secured with Dry Gauze, Secured with Tape Pain Scale: 0-10 Numeric Is Patient Pain Free? Yes WC - Visit Discharge Discharge Condition Stable Ambulatory Status Ambulatory Transportation Private Auto Accompanied by daughter Assessment/Plan Assessment/Plan (1) Cellulitis of right lower leg: CODE(S): L03.115 - Cellulitis of right lower limb (2) Contusion of right lower leg, sequela: CODE(S): S80.11XS - Contusion of right lower leg, sequela (3) Venous ulcer of right leg: CODE(S): I83.019 - Varicose veins of right lower extremity with ulcer of unspecified site; L97.919 - Non-pressure chronic ulcer of unspecified part of right lower leg with unspecified severity PLAN: Plan Debridement performed today in clinic as annotated above. At home wound-care instructions: She will dress her wound with hydrogel and adaptic and cover with gauze changed daily. We will use double layer tubigrip for compression. Off-loading: The patient was instructed to avoid pressure and friction on the affected areas. Reposition every 2 hours at minimum. Avoid prolonged standing and/or dangling of legs. When seated, feet should be elevated at chest level. Frequent ambulation is encouraged. Diet: Patient encouraged to increase protein intake while taking caution to avoid high carbohydrate and/or sugar intake. Labs/cultures/imaging: She is currently without any current sign of infection. Follow-up: Return in 1 week for wound care follow up. Return sooner or report to the emergency room should symptoms worsen, or new symptoms arise. Note: [employer] speech recognition cloth tester quality software was used to create portions of this document. Sound-alike and misspelled words, as well as other cloth tester quality errors may be contained in the documentation.
[2022-07-15 09:37] VITALS: BP 128/66; PULSE 68; RESP 18; TEMP 36.3
--- NOTE | 2022-07-15 13:55 | PCM.WC.PN ---
History of Present Illness Date of Service: 07/15/22 Chief Complaint: ulcer right montoya History of Wound: Marietta is a pleasant 51 yo woman who presents to the wound healing center today for evaluation and treatment of an ulcer of her right montoya that has been present since January 2022. She initially injured her montoya by striking it against an extension ladder and developed a large hematoma. An X-ray was done to rule out fracture of bone at that time and this was negative for fracture. The hematoma has decreased in size over time and the wound to her montoya has started to heal at times but never fully healed since the initial injury. In the last week it has gotten larger and become painful and she went to urgent care and was prescribed doxycycline for antibiotics and saw her PCP on Monday who performed a wound culture and referred her here for evaluation and treatment. She has applied bacitracin and triple antibiotic ointment intermittently over the presence of the ulcer. On Monday04/25/2022, she was instructed to start using calcium alginate and kerlix to the ulcer and this has improved the amount of slough to the ulcer. She has moderate drainage. She is tolerating doxycycline treatment and denies any fever, chills, increased erythema or increase in drainage or pain. Wound culture performed by PCP showed Enterobacter, not sensitive to doxycycline. Subjective Subjective Marietta's ulcer is improved in appearance and is healed. Objective Data Objective Data Vital Signs: Vital Signs Temp Pulse Resp BP 97.3 F L 68 18 128/66 H 07/15/22 09:37 07/15/22 09:37 07/15/22 09:37 07/15/22 09:37 Physical Exam Const alert, oriented x3 and no apparent distress General Appearance: cooperative and comfortable HEENT normocephalic and head/scalp atraumatic Resp normal respiratory effort Effort and Inspection: able to speak in complete sentences Cardio regular rate and regular rhythm Skin Wounds: wounds noted Wound Narrative: as in clinical panel Psych mental status grossly normal, thought process normal, cooperative and affect normal Debridement Note Debridement Note Wound debrided: right montoya Laterality: Right No debridement was completed: No debridement was completed today (ulcer healed) Post-Debridement Measurements and Additional Note: Post-Debridement Measurements/Treatment GREG - Nurse 1 - General Ulcer Assessment Start: 07/08/22 09:46 Freq: Status: Active Protocol: HARINDER Activity Type Activity Date Activity User E-sign Co-sign Detail Recorded Client Recorded Date Recorded By Document 07/08/22 09:46 PAMELA [id number] 07/08/22 09:47 KR Document 07/15/22 09:37 RB [id number] 07/15/22 09:39 RB 07/08/22 07/15/22 09:46 09:37 - Today's Visit Information Type of service Follow-up Visit Follow-up Visit (Physician/SYSTEM SUPPORT SPECIALIST (Physician/SYSTEM SUPPORT SPECIALIST ) ) Arrival Mode Ambulatory Ambulatory Transfer Assistance None Patient Identification Verified (Name & Yes Yes ) Patient Requires Transmission-Based No Precautions Vital Signs Temperature (97.8 F-99.1 F) 97.0 F L 97.3 F L Temperature Source Temporal Temporal Pulse Rate (60-100) 85 68 Pulse Location Monitor Monitor Respiratory Rate (12-18) 18 Respiratory rate source Observation Blood Pressure (90/60-120/80) 104/57 L 128/66 H Blood Pressure Mean (mm Hg) 72 86 Source Monitor Monitor Position Semi-Fowlers Semi-Fowlers Blood Pressure Location Left Arm Left Arm History Since Last Visit- (Skip if this is Patient's initial visit) Have you changed medications since your No No last visit? Any new allergies or adverse reactions No No Had a fall/change in ADL's that may No No increase risk of falls Signs or symptoms of abuse and/or No No neglect since last visit Have you been in the hospital since your No No last visit? Has dressing in place as prescribed Yes Yes Has compression in place as prescribed N/A Yes Has offloadiing in place as prescribed N/A No Experienced any changes in pain level or No No management Left Footwear Regular Shoe Right Footwear Regular Shoe Pain Scale: 0-10 Numeric Is Patient Pain Free? Yes Yes - Nurse 1 - General Ulcer Measurement Start: 07/08/22 09:46 Freq: Status: Active Protocol: Activity Type Activity Date Activity User E-sign Co-sign Detail Recorded Client Recorded Date Recorded By Document 07/08/22 09:46 PAMELA [id number] 07/08/22 09:47 KR Document 07/15/22 09:37 RB [id number] 07/15/22 09:39 RB 07/08/22 07/15/22 09:46 09:37 Wound Center Nurse 1 #1 Right Montoya -Combined with other wound No -Current Size (cm) - Length 0.5 0.3 -Current Size (cm) - Width 0.8 0.4 -Current Size (cm) - Depth 0.1 0.1 -Total Square Cm 0.40 0.12 -Photo Taken Yes -Tunneling No -Undermining/Tunneling No -Circular Undermining No -Exudate Amt Small Medium -Exudate Type Serosanguineous Serosanguineous -Wound Margin Distinct, Distinct, Outline Outline Attached Attached -Granulation Amt Small (1-33%) Medium (34-66%) -Granulation Quality Red [place] -Slough/Fibrin Yes -Necrosis Amt None Present (0 Small (1-33%) %) -Necrotic Tissue Type Adherent Slough -Structure Exposed N/A -Texture (Sania-wound Skin Appearance) Assessed, Assessed Scarring -Moisture (Sania-wound Skin Appearance) No Abnormality, Assessed Assessed -Color (Sania-wound Skin Appearance) No Abnormality, Assessed Assessed -Temperature (Sania-wound Skin No Abnormality No Abnormality Appearance) (Pt Warm) (Pt Warm) -Tenderness on Palpation (Sania-wound No No Skin Appearance) -Ulcer Cleansing Rinsed/ Wound Cleanser Irrigated with Saline -Foul Odor after Cleansing No No -Anesthetic Used 5% Lidocaine 5% Lidocaine Gel Gel WC - Nurse 2 - General Ulcer CM Notes Start: 07/08/22 09:46 Freq: Status: Active Protocol: Activity Type Activity Date Activity User E-sign Co-sign Detail Recorded Client Recorded Date Recorded By Document 07/08/22 09:58 MW [id number] 07/08/22 10:03 MW Document 07/15/22 10:13 MW [id number] 07/15/22 10:18 MW Edit Result 07/15/22 10:13 MW (1) [id number] 07/15/22 10:22 MW (1) #1 Right Montoya - Procedure Performed Yes => No - Type of Procedure Debridement => - Clinical Debridement Subcutaneous => - Tissue Removed Subcutaneous => - Post Debridement (cm) - Length 0.3 => 0 - Post Debridement (cm) - Width 0.2 => 0 - Post Debridement (cm) - Depth 0.1 => 0 - Total Square (Post) (cm) 0.06 => 0 - Area of Debridement (cm) - Length 0.3 => - Area of Debridement (cm) - Width 0.2 => - Total Square (Area) (cm) 0.06 => - Wound/Ulcer Outcome Not Healed => Healed- => Epithelialized - Debridement - Subq, 1st 20sq cm Yes => 07/08/22 07/15/22 09:58 10:13 Wound Center Nurse 2 #1 Right Montoya -Time 09:59 10:13 -Correct Patient Yes Yes -Correct Side, Site, Position Yes Yes -Correct Procedure Yes Yes -Procedure Performed Yes No -Type of Procedure Debridement -Clinical Debridement Subcutaneous -Tissue Removed Subcutaneous -Post Debridement (cm) - Length 0.8 0 -Post Debridement (cm) - Width 1.1 0 -Post Debridement (cm) - Depth 0.1 0 -Total Square (Post) (cm) 0.88 0 -Area of Debridement (cm) - Length 0.8 -Area of Debridement (cm) - Width 1.1 -Total Square (Area) (cm) 0.88 -Tunneling No No -Undermining/Tunneling No No -Circular Undermining No No -Wound/Ulcer Outcome Not Healed Healed- Epithelialized -Ulcer Cleansing Rinsed/ Rinsed/ Irrigated with Irrigated with Saline Saline -Foul Odor after Cleansing No No -Bioengineered Tissue No No -Bleeding Controlled with Pressure Pressure -Treatment Response Procedure Procedure Tolerated Well Tolerated Well -Offloading No No -Debridement - Subq, 1st 20sq cm Yes Pain Scale: 0-10 Numeric Is Patient Pain Free? Yes Yes WC - Nurse 3 - General Ulcer D/C NN Start: 07/08/22 09:46 Freq: Status: Active Protocol: Activity Type Activity Date Activity User E-sign Co-sign Detail Recorded Client Recorded Date Recorded By Document 07/08/22 10:12 KR [id number] 07/08/22 10:12 KR Document 07/15/22 10:22 MW [id number] 07/15/22 10:23 MW 07/08/22 07/15/22 10:12 10:22 Wound Care Nurse 3 #1 Right Montoya -Ulcer Cleansing Rinsed/ Rinsed/ Irrigated with Irrigated with Saline Saline -Foul Odor after Cleansing No -Negative Pressure Wound Therapy N/A -Primary Dressing Applied C Hydrogel ($) NonAdherent Contact Layer -Other Dressing c.hydrogel -Primary Dressing Covered/Secured with Dry Gauze, Dry Gauze, Secured with Secured with Tape Tape Treatment Response Procedure Tolerated Well Pain Scale: 0-10 Numeric Is Patient Pain Free? Yes Yes Teaching: Wound Center Discharge Instructions -Person Taught Patient,Family -Teaching Method Discussion, Demonstration -Response to teaching Verbalize understanding Dressing Your Wound -Person Taught Patient,Family -Teaching Method Discussion, Demonstration -Response to teaching Verbalize understanding WC - Visit Discharge Discharge Condition Stable Stable Ambulatory Status Ambulatory Ambulatory Transportation Private Auto Private Auto Accompanied by daughter daughter Medication Reconcilliation completed & No provided to patient/care provider Clinical Summary of Care Provided Yes Assessment/Plan Assessment/Plan (1) Cellulitis of right lower leg: CODE(S): L03.115 - Cellulitis of right lower limb (2) Contusion of right lower leg, sequela: CODE(S): S80.11XS - Contusion of right lower leg, sequela (3) Venous ulcer of right leg: CODE(S): I83.019 - Varicose veins of right lower extremity with ulcer of unspecified site; L97.919 - Non-pressure chronic ulcer of unspecified part of right lower leg with unspecified severity PLAN: Plan Her ulcer is healed. At home wound-care instructions: She will keep the healed area moisturized to avoid skin breakdown and cracking. Off-loading: The patient was instructed to avoid pressure and friction on the affected areas. Reposition every 2 hours at minimum. Avoid prolonged standing and/or dangling of legs. When seated, feet should be elevated at chest level. Frequent ambulation is encouraged. Diet: Patient encouraged to increase protein intake while taking caution to avoid high carbohydrate and/or sugar intake. Labs/cultures/imaging: She is currently without any current sign of infection. Follow-up: She will be discharged and will return as needed. Note: [employer] speech recognition vice president global advertising sales software was used to create portions of this document. Sound-alike and misspelled words, as well as other vice president global advertising sales errors may be contained in the documentation.
== END 2022-07-19 15:07 | disposition home or self-care (01) ==
LOC: WC 09:30
PROVIDERS: PCP Family Medicine; Visit Provider Family Medicine
DX: I83.018 Varicose veins of right lower extremity with ulcer other part of lower leg (principal); L97.812 Non-pressure chronic ulcer of other part of right lower leg with fat layer exposed; L03.115 Cellulitis of right lower limb; I87.2 Venous insufficiency (chronic) (peripheral); I83.91 Asymptomatic varicose veins of right lower extremity; S80.11XS Contusion of right lower leg, sequela; W22.09XS Striking against other stationary object, sequela
CPT/HCPCS: 11042; 99213; G0463

== ENCOUNTER → 2023-03-27 | Outpatient (CLI) | payer OTHER, SELFPAY ==
--- NOTE | 2023-03-27 15:27 | RAD_ITS ---
STUDY: X-RAY - CERVICAL SPINE REASON FOR EXAM: Female, 52 years old. Neck pain. TECHNIQUE: 5 view(s) of the cervical spine were obtained including oblique views. COMPARISON: None FINDINGS: Normal anterior atlantoaxial articulation. Normal odontoid process. Normal cervical lordosis. Normal vertebral bodies and endplates. Normal disc space heights. Normal visualized intervertebral neuroforamina. The soft tissue structures are unremarkable. RAD/Cerv Spine 4 or 5 Views IMPRESSION: Normal x-ray examination of the visualized cervical spine. Electronically Signed: [place] MD at 15:50 EDT ,
== END | disposition home or self-care (01) ==
LOC: MTRAD 15:05
PROVIDERS: PCP Family Medicine; Referring Provider Physician Assistant; Visit Provider Physician Assistant
DX: S16.1XXA Strain of muscle, fascia and tendon at neck level, initial encounter (principal); X58.XXXA Exposure to other specified factors, initial encounter
CPT/HCPCS: 72050

== ENCOUNTER 2023-04-27 13:00 | Outpatient (RCR) | payer OTHER, SELFPAY ==
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
--- NOTE | 2023-04-27 13:40 | HP.PTDCSUM ---
Discharge Summary D/C summary: It has been my pleasure to treat RANDY ADORNO referred by FLORI Guillermo, with the diagnosis of neck strain and concussion for a total of 7 visit(s). Discharge Date: 04/27/23 Please see the following information for a summary of their discharge status. Subjective Subjective: Better, no more dizzyness or SHAFER. No spinning in a while. Had SHAFER last week short duration unknown reason. Activities are back to normal. Sleep is fine. No HEP but bais hay. Pain neck pain: Pain Intensity (Out of 10): 0 Overall Improvement % Improvement: 98 Objective Objective/Function: FGA is normal and +4, DHI is near perfect. Neck ROM is full and painfree today. Pt doing very well overall and is back to work and tolerating life well. Goals Goal 1:: Abolish vertigenous feeling Goal Progress: Goal Met Goal 2:: Full neck aROM without pain Goal Progress: Goal Met Goal 3:: Patient feel 100% back to normal with dizzy and neck pain Goal Progress: 98 Goal 4:: DHI score 4 or less Goal Progress: Goal Met Goal 5:: 30 score on FGA Goal Progress: Goal Met Plan Plan: d/c D/C Information Discharge Comments: Doing well and released from PT d/c sentence: If there are questions or concerns regarding this patient's physical therapy, please feel free to call me at [phone]. Thank you for the referral of this patient. Sincerely, Jairo Franz, DPT, OCS, CSCS Balance/Gait/Functional tests Balance/Special Test Scores Functional Gait Assessment Score: 30 % Disability: 0 Dizziness Score: 2 Improvement % Improvement: 98
== END 2023-04-27 14:01 | disposition home or self-care (01) ==
LOC: PT 13:00
PROVIDERS: PCP Family Medicine; Visit Provider Physician Assistant
DX: S16.1XXD Strain of muscle, fascia and tendon at neck level, subsequent encounter (principal); S06.0X0D Concussion without loss of consciousness, subsequent encounter
CPT/HCPCS: 97110; 97140; 97162; 97164

== ENCOUNTER → 2023-06-08 | Outpatient (CLI) | payer OTHER, SELFPAY ==
--- NOTE | 2023-06-08 13:56 | BI_ITS ---
MAMMOGRAPHY - BILATERAL SCREENING REASON FOR EXAM: Female, 52 years old. Routine annual screening examination. PERTINENT HISTORY: Non-contributory. TECHNIQUE: Digital bilateral breast haven (3D mammographic acquisition) in the CC and MLO projections. 2-D mediolateral oblique (MLO) and craniocaudad (CC) views of both breasts were obtained. CAD: Full Field Digital Mammography with Computer Added Detection was performed. COMPARISON: Comparison is made with prior study dated 12/15/2021 and November 16, 2020. FINDINGS: Breast Composition: There are scattered areas of fibroglandular density. There are no dominant masses or suspicious calcifications. No other significant abnormalities are identified. There has been no significant change since the prior study. BI/SCRN MAMM (CAD)W/HAVEN BILAT IMPRESSION: Stable bilateral screening mammogram. Yearly follow-up mammogram recommended. (A) ASSESSMENT CATEGORY: BIRADS Category 1: Negative. A letter regarding these results will be sent to the patient by the facility within 30 days. Approximately 10% of breast cancers are not detected by mammography. A normal mammogram should not delay biopsy of a clinically suspicious abnormality. [id number] Electronically Signed: Rio Arenas MD at 14:47 EDT ,
== END | disposition home or self-care (01) ==
LOC: OPBI 13:54
PROVIDERS: PCP Family Medicine; Referring Provider Family Medicine; Visit Provider Family Medicine
DX: Z12.31 Encounter for screening mammogram for malignant neoplasm of breast (principal)
CPT/HCPCS: 77063; 77067

== ENCOUNTER → 2024-05-24 | Outpatient (CLI) | payer OTHER, SELFPAY ==
[2024-05-24 12:15] LABS: Absolute Lymphocyte Count 1.12 X10^3/uL (0.83-4.51); Absolute Neutrophil Count 2.8 X10^3/uL (2.0-7.7); Basophil# 0.03 X10^3/uL; Basophil% 0.7 % (0-1); Eosinophil# 0.12 X10^3/uL; Eosinophils% 2.7 % (0-5); Hemoglobin 13.6 g/dL (12.0-15.0); Lymphocyte # 1.12 X10^3/ul (0.83-4.51); Lymphocyte % 25.3 % (19-41); Mean Corp Hgb Conc 32.4 g/dL (32-36); Mean Corpuscular Hgb 28.9 pg (27.0-32.0); Mean Corpuscular Volume 89.2 fL (81-99); Monocyte# 0.35 X10^3/uL; Monocyte% 7.9 % (0-10); NRBC Flagged by Analyzer 0 % (0-5); Neutrophil % 63.4 % (47-70); Platelet Count 230 K/mm3 (150-450); RBC Distribution Width CV 13.1 % (11.6-14.6); RBC Distribution Width SD 42.8 fl (35.1-43.9); Red Blood Count 4.71 M/mm3 (4.2-5.4); White Blood Count 4.4 K/mm3 (4.4-11.0)
[2024-05-24 12:40] LABS: AST(SGOT) 9 U/L (15-37); Alanine Aminotransfer ALT/SGPT 12 U/L (13-56); Albumin, Serum 3.6 g/dL (3.2-5.0); Alkaline Phosphatase 67 U/L (45-117); Anion Gap 5 (5-15); BUN 17 mg/dL (7-18); Chloride 107 mmol/L (98-107); Cholesterol 153 mg/dL (200); Creatinine, Serum 0.74 mg/dL (0.55-1.02); EST Glomerular Filtration Rate 87 mL/min (>60); Est Glom Filt Rate - Afr Amer 105 mL/min (>60); Globulin 3.6 g/dL (2.2-4.2); Glucose 92 mg/dL (74-106); High Density Lipoprotein 64 mg/dL; Protein, Total 7.2 g/dL (6.4-8.2); Sodium Level 138 mmol/L (136-145); Triglycerides 76 mg/dL; Very Low Density Lipoprotein 15 mg/dL (5-40)
== END | disposition home or self-care (01) ==
LOC: BFHLAB 09:08
PROVIDERS: PCP Family Medicine; Visit Provider Family Medicine
DX: Z00.00 Encounter for general adult medical examination without abnormal findings (principal); E03.9 Hypothyroidism, unspecified
CPT/HCPCS: 36415; 80053; 80061; 84443; 85025

== ENCOUNTER → 2024-06-14 | Outpatient (CLI) | payer OTHER, SELFPAY ==
--- NOTE | 2024-06-14 13:52 | BI_ITS ---
MAMMOGRAPHY - BILATERAL SCREENING REASON FOR EXAM: Female, 53 years old. Routine annual screening examination. PERTINENT HISTORY: Non-contributory. TECHNIQUE: Digital bilateral breast haven (3D mammographic acquisition) in the CC and MLO projections. 2-D mediolateral oblique (MLO) and craniocaudad (CC) views of both breasts were obtained. CAD: Full Field Digital Mammography with Computer Added Detection was performed. COMPARISON: Comparison is made with prior study dated June 08, 2023 and December 15, 2021. FINDINGS: Breast Composition: There are scattered areas of fibroglandular density. There are no dominant masses or suspicious calcifications. No other significant abnormalities are identified. There has been no significant change since the prior study. BI/SCRN MAMM (CAD)W/HAVEN BILAT IMPRESSION: Stable bilateral screening mammogram. Yearly follow-up mammogram recommended. (A) ASSESSMENT CATEGORY: BIRADS Category 1: Negative. A letter regarding these results will be sent to the patient by the facility within 30 days. Approximately 10% of breast cancers are not detected by mammography. A normal mammogram should not delay biopsy of a clinically suspicious abnormality. [id number] Electronically Signed: Rio Arenas MD at 15:49 EDT ,
== END | disposition home or self-care (01) ==
LOC: OPBI 13:47
PROVIDERS: PCP Family Medicine; Referring Provider Family Medicine; Visit Provider Family Medicine
DX: Z12.31 Encounter for screening mammogram for malignant neoplasm of breast (principal)
CPT/HCPCS: 77063; 77067

== ENCOUNTER → 2024-07-09 | Outpatient (CLI) | payer OTHER, SELFPAY ==
--- NOTE | 2024-07-09 10:22 | RAD_ITS ---
STUDY: X-RAY - LEFT SHOULDER REASON FOR EXAM: Female, 53 years old. SHOULDER PAIN TECHNIQUE: 3 view(s) of the shoulder. COMPARISON: None. FINDINGS: Normal glenohumeral articulation. Normal acromioclavicular joint. Normal acromion. Normal humeral head and visualized proximal humerus. The soft tissue structures are unremarkable. Normal visualized pulmonary apex. RAD/Shoulder min 2 Views IMPRESSION: Normal x-ray examination of the shoulder. Electronically Signed: Taurus Vargas MD at 9:23 EST ,
== END | disposition home or self-care (01) ==
LOC: MTRAD 10:21
PROVIDERS: PCP Family Medicine; Referring Provider Family Medicine; Visit Provider Family Medicine
DX: M25.512 Pain in left shoulder (principal)
CPT/HCPCS: 73030

== ENCOUNTER → 2025-04-03 | Outpatient (CLI) | payer OTHER, SELFPAY | END | disposition home or self-care (01) | LOC: LABSPEC 11:49 | PROVIDERS: PCP Family Medicine; Referring Provider Physician Assistant Surgical; Visit Provider Physician Assistant Surgical | DX: R30.0 Dysuria (principal) | CPT/HCPCS: 87086 ==

== ENCOUNTER → 2025-05-30 | Outpatient (CLI) | payer OTHER, SELFPAY ==
--- NOTE | 2025-05-30 09:04 | RAD_ITS ---
PROCEDURE: FINGER(S) MIN 2 VIEWS 05/30/2025 REASON FOR EXAM: PAIN IN FINGER Glass and finger 2 months ago. Assess for residual glass. Still painful between D IP and PIP of 2nd digit right hand. TECHNIQUE: Procedure Code: RADFIN Modality: DX Procedure: FINGER(S) MIN 2 VIEWS Laterality: Right COMPARISON: None FINDINGS: Bones: Three views of the a 2nd digit right hand were obtained and demonstrate no radiopaque foreign bodies. There are no fractures or dislocations. Joints: Joint spaces are well preserved. Soft tissues: Soft tissues are grossly unremarkable. Other: No radiopaque foreign body is seen. If glass is clinically suspected, an ultrasound may be performed for further evaluation. RAD/Finger(s) Min 2 Views IMPRESSION: No radiopaque foreign body is seen. If glass is clinically suspected, an ultra sound may be performed for further evaluation. Reading Location: [id number]
== END | disposition home or self-care (01) ==
LOC: MTRAD 09:01
PROVIDERS: PCP Family Medicine; Referring Provider Family Medicine; Visit Provider Family Medicine
DX: M79.644 Pain in right finger(s) (principal)
CPT/HCPCS: 73140